=== PATIENT | female | born 1960 | race Caucasian/White ===

== ENCOUNTER → 2016-10-26 | Outpatient (CLI) | payer MEDICARE ==
[2015-05-25 17:30] VITALS: BP 128/82
[~2016-10-26] MED LIST: BIOT25006 PO; CELE200C PO; CITA20TA5 PO; ESOM40CA PO; ESTR1TAB17 PO; ESTR1TAB23 PO; FEXO180T81 PO; GABA-586 PO; HYDR-2766 PO; LEVO150T PO; MAGN250T10 PO; MECL12.52 PO; METO100T2 PO; MIDO5TAB PO; MORP30TA PO; ORPH100T PO; PREG200C PO; PROM12.56 PO; SIMV40TA PO; TEMA15CA PO
--- NOTE | 2016-10-26 10:52 | KCIC ---
MRI left ankle without contrast dated 10/26/2016 9:30 AM Indication: Chronic left ankle pain history of prior Achilles tendon repair evaluate for impingement, injury 5 years ago Comparison: 01/17/2013 Technique: Routine multiplanar multisequence imaging performed. No contrast administered. Findings: Marked thickening and increased signal of the distal Achilles tendon with evidence of prior distal Achilles tendon repair. There is some linear T2 hyperintense signal within the tendon substance centrally. No recurrent full-thickness tear or tendon retraction. Minimal inflammatory stranding in the Achilles peritenon with no signal bursal fluid collection. Mild hypertrophic change of the tibiotalar joint and subtalar joints. There is mild subchondral edema at the distal tibia, talus and calcaneus. Small anterior osteophytes at the tibiotalar joint. Small ankle joint effusion. No loose body. Talar dome is intact. There is mild thinning of the articular cartilage the tibiotalar joint without discrete osteochondral defect. Mild hypertrophic change at the joints of the midfoot. There is an old healed fracture of the distal fibula. Mild degenerative change of the distal tibiofibular joint. Anterior talofibular ligament is ill-defined, unchanged. Posterior talofibular ligament is grossly intact. Calcaneofibular ligament is intact. Tibiofibular ligaments and deltoid complex unremarkable. Plantar fascia is intact. Flexor and extensor tendons are intact. Mild increased signal and thickening of the peroneus longus and peroneus brevis. No fluid along the superior and inferior retinaculum. IMPRESSION: 1. Status post Achilles tendon repair. There is marked increased signal and thickening of the distal Achilles tendon could represent postsurgical change or residual tendinosis. There is also a linear fluid bright defect at the Achilles attachment and may represent a recurrent intrasubstance partial tear or mucoid degeneration. 2. Degenerative change and hypertrophic spurring at the tibiotalar joint, subtalar joints and joints of midfoot. Anterior impingement cannot be excluded. 3. Mild tendinosis of the peroneus longus and peroneus brevis. 4. Old healed fracture of the distal fibula. Electronically signed by: Ham Nicole MD (10/26/2016 10:49 AM) [id number]
--- NOTE | 2016-10-26 17:21 | RAD ---
DATE: 10/26/2016 EXAM: MAMMO KIARA SCREENING BILATERAL HISTORY: Screening mammogram COMPARISON: January 17, 2014 mammogram. The breast parenchyma shows scattered fibroglandular densities. Breast parenchyma level B. FINDINGS: Digital 2-D and 3-D CC and MLO tomosynthesis views of both breasts. There are scattered benign-appearing bilateral calcifications. No suspicious mass, calcification or architectural distortion. No significant change from prior examination. IMPRESSION: No mammographic evidence to suggest malignancy. BI-RADS 2 benign. Recommend routine screening mammogram in 12 months. BI-RADS CATEGORY: 2 BENIGN FINDING(S) RECOMMENDED FOLLOW-UP: 12M 12 MONTH FOLLOW-UP PQRS compliance statement: Patient information was entered into a reminder system with a target due date October 2017 for the next mammogram. Mammography is a sensitive method for finding small breast cancers, but it does not detect them all and is not a substitute for careful clinical examination. A negative mammogram does not negate a clinically suspicious finding and should not result in delay in biopsying a clinically suspicious abnormality. "Our facility is accredited by the [employer] Mammography Program."
== END | disposition home or self-care (01) ==
LOC: KCIC MRI 09:04
PROVIDERS: ATTEND Orthopaedic Surgery
DX: Z12.31 Encounter for screening mammogram for malignant neoplasm of breast (principal); M25.572 Pain in left ankle and joints of left foot
CPT/HCPCS: 73721; 77063; G0202; 77067

== ENCOUNTER 2016-11-19 07:40 | Inpatient (IN) | payer MEDICARE ==
[~2016-11-19] VITALS: Ht 172.7 cm; Wt 83.9 kg
[2016-11-19 08:15] LABS: BASO # 0.1 x10^3/uL (0.0-0.2); BASO % 1 % (0-3); EOS % 0 % (0-3); HEMATOCRIT 44.3 % (36.0-47.0); HEMOGLOBIN 14.6 g/dL (12.0-15.5); LYMPH # 1.2 x10^3/uL (1.0-4.8); LYMPH % 10 % (24-48); MEAN CORPUSCULAR HEMOGLOBIN 33 pg (25-35); MEAN CORPUSCULAR HGB CONC 33 g/dL (31-37); MEAN CORPUSCULAR VOLUME 100 fL (79-100); MONO % 4 % (0-9); NEUT % 85 % (31-73); PLATELET COUNT 244 x10^3/uL (140-400); RED BLOOD COUNT 4.44 x10^6/uL (3.50-5.40); RED CELL DISTRIBUTION WIDTH 12.1 % (11.5-14.5); WHITE BLOOD COUNT 11.7 x10^3/uL (4.0-11.0)
[2016-11-19] MEDS ORDERED: fentaNYL PF VIAL 100 MCG/2 ML VIAL IV PRN (08:15)
[2016-11-19] MEDS ORDERED: FAMOTIDINE 20 MG/2 ML VIAL IVP ONE (08:15)
[2016-11-19 08:18] LABS: BILIRUBIN,URINE SMALL (NEG); GLUCOSE,URINE 100 mg/dL (NEG)
[2016-11-19 08:19] LABS: NITRITE,URINE NEGATIVE (NEG); PROTEIN,URINE 30 mg/dL (NEG-TRACE)
[2016-11-19 08:20] LABS: BACTERIA,URINE 0 /HPF (0-FEW); RBC,URINE 0 /HPF (0-2); SQUAMOUS EPITHELIAL CELL,UR MOD /LPF; WBC,URINE RARE /HPF (0-4)
[2016-11-19 08:25] LABS: CALCIUM 9.8 mg/dL (8.5-10.1); CREATININE 1.2 mg/dL (0.6-1.0); GFR 46.6; POTASSIUM 3.9 mmol/L (3.5-5.1)
[2016-11-19] MEDS ORDERED: IV NORMAL SALINE 1000ML BAG 1,000 ML IV SCH (08:30)
[2016-11-19] MEDS ORDERED: PROMETHAZINE IM 25 MG/ML VIAL IM ONE (08:30)
[2016-11-19 08:31] LABS: ALBUMIN 4.4 g/dL (3.4-5.0); ALBUMIN/GLOBULIN RATIO 1.2 (1.0-1.7); TOTAL BILIRUBIN 0.6 mg/dL (0.2-1.0)
--- NOTE | 2016-11-19 08:35 | PHYS DOC ---
Past Medical History Past Medical History: Depression, Hypertension, Hypothyroid, Other Additional Past Medical Histor: back pain, meniers disease Past Surgical History: Cholecystectomy, , Gastric Bypass, Hysterectomy , Other Additional Past Surgical Histo: HIP ORIF, achilles tendon repair Alcohol Use: Rarely Drug Use: None Adult General Chief Complaint Chief Complaint: NAUSEA/VOMITING/DIARRHA HPI HPI Patient is a 56 year old female who presents with complaint of nausea, vomiting , abdominal pain, and diarrhea. Patient states that her symptoms started 2 days ago and have progressively worsened. Patient states she has had numerous episodes of vomiting and numerous episodes of watery stools. The patient states that she is currently having pain all throughout her abdomen and states that is nonlocalizing. Patient has had history of similar symptoms but states that she has not had any trouble over the last couple years. The patient has history of gastric bypass surgery which was completed in 2006. The patient denies any associated fevers with her symptoms. Patient has been unable to tolerate any oral intake at home and states that she feels very weak and dehydrated. Patient rates pain currently as 9 out of 10. Patient has not taken any medications to help with her symptoms at home. Review of Systems Review of Systems Constitutional: Generalized weakness, denies fever or chills [] Eyes: Denies change in visual acuity, redness, or eye pain [] HENT: Denies nasal congestion or sore throat [] Respiratory: Denies cough or shortness of breath [] Cardiovascular: Denies chest pain or edema [] GI: Abdominal pain, nausea, vomiting, diarrhea [] : Denies dysuria or hematuria [] Musculoskeletal: Denies back pain or joint pain [] Integument: Denies rash or skin lesions [] Neurologic: Denies headache, focal weakness or sensory changes [] Current Medications Current Medications Current Medications Medications (Trade) Dose Ordered Sig/Slade Start Time Stop Time Status Last Admin Dose Admin Famotidine (Pepcid) 20 mg 1X ONCE 11/19/16 08:15 11/19/16 08:16 DC 11/19/16 08:28 20 MG Fentanyl Citrate (Fentanyl 2ml Vial) 50 mcg PRN Q15MIN PRN 11/19/16 08:15 11/20/16 08:14 11/19/16 08:28 50 MCG Info (Do NOT chart on this entry -- for MONITORING) 1 each PRN DAILY PRN 11/19/16 09:45 11/21/16 09:44 Iohexol (Omnipaque 300 Mg/ml) 60 ml 1X ONCE 11/19/16 09:45 11/19/16 09:46 DC 11/19/16 09:57 60 ML Promethazine HCl (Phenergan Im) 25 mg 1X ONCE 11/19/16 08:30 11/19/16 08:31 DC 11/19/16 08:29 25 MG Sodium Chloride 1,000 ml @ 1,000 mls/hr Q1H 11/19/16 08:30 11/19/16 09:29 DC 11/19/16 08:26 1,000 MLS/HR Allergies Allergies Allergies Coded Allergies Type Severity Reaction Last Updated Verified No Known Drug Allergies 11/19/16 No Physical Exam Physical Exam Constitutional: Alert, afebrile, appears ill. [] HENT: Normocephalic, atraumatic, bilateral external ears normal, oropharynx dry , no oral exudates, nose normal. [] Eyes: PERRLA, EOMI, conjunctiva normal, no discharge. [] Neck: Normal range of motion, no tenderness, supple, no stridor. [] Cardiovascular:Heart rate regular rhythm, no murmur [] Lungs & Thorax: Bilateral breath sounds clear to auscultation [] Abdomen: Bowel sounds normal, soft, diffusely tender in all 4 quadrants, no masses, no pulsatile masses. [] Skin: Warm, dry, no erythema, no rash. [] Back: No tenderness, no CVA tenderness. [] Extremities: No tenderness, no cyanosis, no clubbing, ROM intact, no edema. [] Neurologic: Alert and oriented X 3, normal motor function, normal sensory function, no focal deficits noted. [] Current Patient Data Vital Signs Vital Signs Date Time Temp Pulse Resp B/P (MAP) Pulse Ox O2 Delivery O2 Flow Rate FiO2 11/19/16 07:54 99.5 67 18 179/78 (111) 100 Room Air 99.5 Lab Values Laboratory Tests Test 11/19/16 07:45 11/19/16 08:00 Urine Collection Type Unknown Urine Color Yellow Urine Clarity Clear Urine pH 6.0 Urine Specific [place] >=1.030 Urine Protein 30 mg/dL (NEG-TRACE) Urine Glucose (UA) 100 mg/dL (NEG) Urine Ketones (Stick) >160 mg/dL (NEG) Urine Blood Negative (NEG) Urine Nitrite Negative (NEG) Urine Bilirubin Small (NEG) Urine Urobilinogen Dipstick 2.0 mg/dL (0.2 mg/dL) Urine Leukocyte Esterase Negative (NEG) Urine RBC 0 /HPF (0-2) Urine WBC Rare /HPF (0-4) Urine Squamous Epithelial Cells Mod /LPF Urine Bacteria 0 /HPF (0-FEW) Urine Mucus Mod /LPF White Blood Count 11.7 x10^3/uL (4.0-11.0) H Red Blood Count 4.44 x10^6/uL (3.50-5.40) Hemoglobin 14.6 g/dL (12.0-15.5) Hematocrit 44.3 % (36.0-47.0) Mean Corpuscular Volume 100 fL (79-100) Mean Corpuscular Hemoglobin 33 pg (25-35) Mean Corpuscular Hemoglobin Concent 33 g/dL (31-37) Red Cell Distribution Width 12.1 % (11.5-14.5) Platelet Count 244 x10^3/uL (140-400) Neutrophils (%) (Auto) 85 % (31-73) H Lymphocytes (%) (Auto) 10 % (24-48) L Monocytes (%) (Auto) 4 % (0-9) Eosinophils (%) (Auto) 0 % (0-3) Basophils (%) (Auto) 1 % (0-3) Neutrophils # (Auto) 10.0 x10^3uL (1.8-7.7) H Lymphocytes # (Auto) 1.2 x10^3/uL (1.0-4.8) Monocytes # (Auto) 0.4 x10^3/uL (0.0-1.1) Eosinophils # (Auto) 0.0 x10^3/uL (0.0-0.7) Basophils # (Auto) 0.1 x10^3/uL (0.0-0.2) Segmented Neutrophils % 93 % (35-66) H Lymphocytes % 5 % (24-48) L Monocytes % 2 % (0-10) Platelet Estimate Adequate (ADEQUATE) Sodium Level 142 mmol/L (136-145) Potassium Level 3.9 mmol/L (3.5-5.1) Chloride Level 100 mmol/L (98-107) Carbon Dioxide Level 28 mmol/L (21-32) Anion Gap 14 (6-14) Blood Urea Nitrogen 13 mg/dL (7-20) Creatinine 1.2 mg/dL (0.6-1.0) H Estimated GFR (Cockcroft-Gault) 46.6 BUN/Creatinine Ratio 11 (6-20) Glucose Level 150 mg/dL (70-99) H Calcium Level 9.8 mg/dL (8.5-10.1) Total Bilirubin 0.6 mg/dL (0.2-1.0) Aspartate Amino Transferase (AST) 28 U/L (15-37) Alanine Aminotransferase (ALT) 26 U/L (14-59) Alkaline Phosphatase 84 U/L (46-116) Total Protein 8.0 g/dL (6.4-8.2) Albumin 4.4 g/dL (3.4-5.0) Albumin/Globulin Ratio 1.2 (1.0-1.7) Lipase 97 U/L (73-393) Laboratory Tests 11/19/16 08:00 Laboratory Tests 11/19/16 08:00 EKG EKG Not performed [] Radiology/Procedures Radiology/Procedures [facility] [address] [place] [address] IMAGING REPORT Signed PATIENT: ROGER MCCALL ACCOUNT: [id number] : 1960 LOCATION: ER AGE: 56 SEX: F EXAM STATUS: REG ER ORD. PHYSICIAN: LAY ODELL APRN REASON: abdominal pain with nausea and vomiting PROCEDURE: ACUTE ABDOMEN SERIES Acute abdomen series with chest, 3 views, 11/19/2016: History: Nausea and vomiting There is mild gaseous distention of several small bowel loops in the upper abdomen. There is a small amount of gas and stool in the colon. There are scattered air-fluid levels. The findings suggest small bowel obstruction versus ileus. No free air seen in the abdomen. There is no evidence of organomegaly. Lower pelvic calcifications are compatible with phleboliths. Surgical pins are present at the left hip. There are moderate scattered spurs in the spine. The heart size is normal. The lungs are clear. There is no evidence of pleural fluid. IMPRESSION: Mildly dilated small bowel loops with associated air-fluid levels raising the possibility of small bowel obstruction. DICTATED and SIGNED BY: KELLY LAZARO MD DATE: 11/19/16832 CC: BLU ANDRADE MD; LAY ODELL APRN; EARNESTINE BARBOUR DO ~ [facility] [address] [place] [address] IMAGING REPORT Signed PATIENT: ROGER MCCALL ACCOUNT: [id number] : 1960 LOCATION: ER AGE: 56 SEX: F EXAM STATUS: REG ER ORD. PHYSICIAN: BLU ANDRADE MD REASON: abdominal pain, possible small bowel obstruction PROCEDURE: CT ABD PELV W/ IV CONTRST ONLY CT of the abdomen and pelvis with contrast, 11/19/2016: History: Abdominal pain, nausea and vomiting Multidetector CT imaging was performed following an IV bolus injection of iodinated contrast material. No oral contrast material was administered for this exam. The gallbladder surgically absent. No hepatic mass is seen. Mild prominence of the central intrahepatic bile ducts is compatible with the postcholecystectomy state. The pancreas is unremarkable. No splenic abnormality is seen. The kidneys show no evidence of obstruction or mass. There is mild aortic calcific plaquing without evidence of aneurysm. The uterus is surgically absent. There are surgical sutures related to the stomach. There is mild distention of the majority of the small bowel loops with fluid and gas with scattered air-fluid levels. There is a transition zone at the level of the terminal ileum as best seen on coronal images 24 through 26 of series #4. There is only small amount of stool and gas in the colon. The etiology of the obstruction is not clear. Several small mesenteric lymph nodes are noted in the right lower quadrant. No free air or significant free fluid is evident in the abdomen or pelvis. Surgical pins are present in the left hip. There are mild scattered degenerative changes in the spine. IMPRESSION: Distal small bowel obstruction at the level of the terminal ileum. PQRS Compliance Statement: One or more of the following individualized dose reduction techniques were utilized for this examination: 1. Automated exposure control 2. Adjustment of the mA and/or kV according to patient size 3. Use of iterative reconstruction technique DICTATED and SIGNED BY: KELLY LAZARO MD DATE: 11/19/16 1024 CC: BLU ANDRADE MD; EARNESTINE BARBOUR DO ~ [] Course & Med Decision Making Course & Med Decision Making Pertinent Labs and Imaging studies reviewed. (See chart for details) The patient was given IM Phenergan and IV fentanyl and fluids. Patient's symptoms slightly improved, however patient unable to tolerate any by mouth intake. The patient was found to have evidence of small bowel obstruction. I spoke with Dr. Cardona of general surgery. She recommended insertion of an NG tube to help decompress the patient's stomach and stated she would remain on consult with the patient's care in hospital. The patient was admitted to Dr. Hebert. Dragon Disclaimer Dragchantal Disclaimer This electronic medical record was generated, in whole or in part, using a voice recognition dictation system. Departure Departure Impression: Primary Impression: Small bowel obstruction Disposition: ADMITTED INPATIENT Admitting Physician: Debra Hebert Condition: STABLE Referrals: DONNIE ZAPIEN (PCP) BLU ANDRADE MD Nov 19, 2016 08:35
--- NOTE | 2016-11-19 08:39 | RAD ---
Acute abdomen series with chest, 3 views, 11/19/2016: History: Nausea and vomiting There is mild gaseous distention of several small bowel loops in the upper abdomen. There is a small amount of gas and stool in the colon. There are scattered air-fluid levels. The findings suggest small bowel obstruction versus ileus. No free air seen in the abdomen. There is no evidence of organomegaly. Lower pelvic calcifications are compatible with phleboliths. Surgical pins are present at the left hip. There are moderate scattered spurs in the spine. The heart size is normal. The lungs are clear. There is no evidence of pleural fluid. IMPRESSION: Mildly dilated small bowel loops with associated air-fluid levels raising the possibility of small bowel obstruction.
[2016-11-19] MEDS ORDERED: IOHEXOL 300 MG/ML 75 ML VIAL IV ONE (09:45)
[2016-11-19] MEDS ORDERED: CONTRAST GIVEN MC PRN (09:45)
[2016-11-19 10:38] LABS: PLT ESTIMATE ADEQUATE (ADEQUATE)
--- NOTE | 2016-11-19 10:41 | RAD ---
CT of the abdomen and pelvis with contrast, 11/19/2016: History: Abdominal pain, nausea and vomiting Multidetector CT imaging was performed following an IV bolus injection of iodinated contrast material. No oral contrast material was administered for this exam. The gallbladder surgically absent. No hepatic mass is seen. Mild prominence of the central intrahepatic bile ducts is compatible with the postcholecystectomy state. The pancreas is unremarkable. No splenic abnormality is seen. The kidneys show no evidence of obstruction or mass. There is mild aortic calcific plaquing without evidence of aneurysm. The uterus is surgically absent. There are surgical sutures related to the stomach. There is mild distention of the majority of the small bowel loops with fluid and gas with scattered air-fluid levels. There is a transition zone at the level of the terminal ileum as best seen on coronal images 24 through 26 of series #4. There is only small amount of stool and gas in the colon. The etiology of the obstruction is not clear. Several small mesenteric lymph nodes are noted in the right lower quadrant. No free air or significant free fluid is evident in the abdomen or pelvis. Surgical pins are present in the left hip. There are mild scattered degenerative changes in the spine. IMPRESSION: Distal small bowel obstruction at the level of the terminal ileum. PQRS Compliance Statement: One or more of the following individualized dose reduction techniques were utilized for this examination: 1. Automated exposure control 2. Adjustment of the mA and/or kV according to patient size 3. Use of iterative reconstruction technique
[2016-11-19] MEDS ORDERED: ACETAMINOPHEN 325 MG TABLET. PO PRN (11:15)
[2016-11-19] MEDS ORDERED: ONDANSETRON PF 4 MG/2 ML VIAL. IV PRN (11:15)
[2016-11-19] MEDS ORDERED: IV DEXTROSE 5 %-0.45 % NACL 1,000 ML IV ONE (11:30)
[2016-11-19] MEDS: fentaNYL PF VIAL 100 MCG/2 ML VIAL IV PRN ×3 (11:34→20:19)
--- NOTE | 2016-11-19 11:35 | PDOC1 ---
History and Physical Date of Admission Date of Admission DATE: 11/19/16 TIME: 11:29 Identification/Chief Complaint Chief Complaint abd pain ,diarrhea, nausea x 2 days Problems: Source Source: Caregiver, Chart review, Patient History of Present Illness History of Present Illness 56y.o female, hx gastric bypass [facility] 2006,. not following up anymore with them, but since then has been having (not too freq) Abd issues, abd pain, obstrucn, never had NGT before, LAst seen here in 2013 for similar sxs, she goes to [facility] at times for admission, 2 day hx abd pain all over, emesis, diarrhea > 5x a day but no fever, dry heaving, Seen atER, bucket at bedside, scared of the nGT, CT shows distal obstrxn at level of terminal ileum, LAbs cerat 1.2, GFR high 40s, WBC 11, afebrile Admitted under hospitalist with GS aware of consult, She claims she weight 400lbs prior to gastric bypass -now weighs 185 lbs Past Medical History Pulmonary: Other GI: GERD Musculoskeletal: low back pain Past Surgical History Past Surgical History: Other (gastric bypass) Family History Family History: Hypertension Social History Smoke: No ALCOHOL: none Drugs: None Current Problem List Problem List Problems Medical Problems: (1) Small bowel obstruction Status: Acute Problems: Current Medications Current Medications Current Medications Sodium Chloride 1,000 ml @ 1,000 mls/hr Q1H IV Last administered on 11/19/16 08:26; Start 11/19/16 at 08:30; Stop 11/19/16 at 09:29; Status DC Famotidine (Pepcid) 20 mg 1X ONCE IVP Last administered on 11/19/16 08:28; Start 11/19/16 at 08:15; Stop 11/19/16 at 08:16; Status DC Promethazine HCl (Phenergan Im) 25 mg 1X ONCE IM Last administered on 08:29; Start 11/19/16 at 08:30; Stop 11/19/16 at 08:31; Status DC Fentanyl Citrate (Fentanyl 2ml Vial) 50 mcg PRN Q15MIN PRN IV PAIN GREATER THAN 3/10 Last administered on 11/19/16 08:28; Start 11/19/16 at 08:15; Stop at 11:16; Status DC Iohexol (Omnipaque 300 Mg/ml) 60 ml 1X ONCE IV Last administered on 11/19/16t 09:57; Start 11/19/16 at 09:45; Stop 11/19/16 at 09:46; Status DC Info (Do NOT chart on this entry -- for MONITORING) 1 each PRN DAILY PRN MC SEE COMMENTS; Start 11/19/16 at 09:45; Stop 11/21/16 at 09:44 Ondansetron HCl (Zofran) 4 mg PRN Q8HRS PRN IV NAUSEA/VOMITING; Start 11/19/16 at 11:15; Stop 11/20/16 at 11:14 Fentanyl Citrate (Fentanyl 2ml Vial) 50 mcg PRN Q2HR PRN IV PAIN; Start at 11:15; Stop 11/20/16 at 11:14 Acetaminophen (Tylenol) 650 mg PRN Q4HRS PRN PO FEVER; Start 11/19/16 at 11:15 ; Stop 11/20/16 at 11:14 Dextrose/Sodium Chloride 1,000 ml @ 125 mls/hr 1X ONCE IV ; Start 11/19/16 at 11:30; Stop 11/19/16 at 19:29 Active Scripts Active Reported Biotin 2,500 Mcg Capsule 10,000 Mcg PO DAILY Magnesium (Magnesium Oxide) 250 Mg Tablet 250 Mg PO DAILY Mariah Allergy (Fexofenadine Hcl) 180 Mg Tablet 1 Tab PO DAILY Gabapentin 300 Mg Capsule 1 Cap PO TID Temazepam 15 Mg Capsule 1-2 Cap PO QHS Promethazine Hcl 12.5 Mg Tablet 1 Tab PO Q6HRS Covaryx H.s. Tablet (Estrogen,Tigist/Me-Testosterone) 1 Each Tablet 1 Each PO Nexium Capsule (Esomeprazole Magnesium) 40 Mg Capsule.dr 40 Mg PO DAILY Hydrocodone-Apap 10-325 (Hydrocodone Bit/Acetaminophen) 1 Each Tablet 1 Each PO PRN Q4HRS Zocor (Simvastatin) 40 Mg Tablet 40 Mg PO DAILY Celebrex (Celecoxib) 200 Mg Capsule 60 Mg PO DAILY Synthroid (Levothyroxine Sodium) 150 Mcg Tablet 100 Mcg PO DAILY Allergies Allergies: Coded Allergies: No Known Drug Allergies (Unverified , 11/19/16) ROS Review of System abd pain, emesis, diarrhea, dry heaving Physical Exam General: Alert, Oriented X3, Cooperative, No acute distress HEENT: PERRLA, EOMI, Mucous membr. moist/pink Lungs: Clear to auscultation, Normal air movement Heart: S1S2, RRR, no thrills, no gallops, no murmurs Cardiovascular: S1, S2 Breasts: Normal, Rt breast nml w/o mass, Lt breast nml w/o mass, Nipples normal Abdomen: Soft, Other (hypoactive bS< non distended, no guarding) Rectal Exam: not examined PELVIC: Nml ext genitalia Extremities: No clubbing, No cyanosis, No edema, Normal pulses, No tenderness/ swelling Skin: No rashes, No breakdown, No significant lesion Neuro: Normal gait, Normal speech, Strength at 5/5 X4 ext, Normal tone, Sensation intact, Cranial nerves 3-12 NL, Reflexes 2+ Psych/Mental Status: Mental status NL, Mood NL Vitals Vitals Vital Signs Date Time Temp Pulse Resp B/P (MAP) Pulse Ox O2 Delivery O2 Flow Rate FiO2 11/19/16 10:29 62 20 130/60 (83) 100 Room Air 11/19/16 07:54 99.5 99.5 Labs Labs Laboratory Tests Test 11/19/16 07:45 11/19/16 08:00 Urine Collection Type Unknown Urine Color Yellow Urine Clarity Clear Urine pH 6.0 Urine Specific [place] >=1.030 Urine Protein 30 mg/dL (NEG-TRACE) Urine Glucose (UA) 100 mg/dL (NEG) Urine Ketones (Stick) >160 mg/dL (NEG) Urine Blood Negative (NEG) Urine Nitrite Negative (NEG) Urine Bilirubin Small (NEG) Urine Urobilinogen Dipstick 2.0 mg/dL (0.2 mg/dL) Urine Leukocyte Esterase Negative (NEG) Urine RBC 0 /HPF (0-2) Urine WBC Rare /HPF (0-4) Urine Squamous Epithelial Cells Mod /LPF Urine Bacteria 0 /HPF (0-FEW) Urine Mucus Mod /LPF White Blood Count 11.7 x10^3/uL (4.0-11.0) Red Blood Count 4.44 x10^6/uL (3.50-5.40) Hemoglobin 14.6 g/dL (12.0-15.5) Hematocrit 44.3 % (36.0-47.0) Mean Corpuscular Volume 100 fL (79-100) Mean Corpuscular Hemoglobin 33 pg (25-35) Mean Corpuscular Hemoglobin Concent 33 g/dL (31-37) Red Cell Distribution Width 12.1 % (11.5-14.5) Platelet Count 244 x10^3/uL (140-400) Neutrophils (%) (Auto) 85 % (31-73) Lymphocytes (%) (Auto) 10 % (24-48) Monocytes (%) (Auto) 4 % (0-9) Eosinophils (%) (Auto) 0 % (0-3) Basophils (%) (Auto) 1 % (0-3) Neutrophils # (Auto) 10.0 x10^3uL (1.8-7.7) Lymphocytes # (Auto) 1.2 x10^3/uL (1.0-4.8) Monocytes # (Auto) 0.4 x10^3/uL (0.0-1.1) Eosinophils # (Auto) 0.0 x10^3/uL (0.0-0.7) Basophils # (Auto) 0.1 x10^3/uL (0.0-0.2) Segmented Neutrophils % 93 % (35-66) Lymphocytes % 5 % (24-48) Monocytes % 2 % (0-10) Platelet Estimate Adequate (ADEQUATE) Sodium Level 142 mmol/L (136-145) Potassium Level 3.9 mmol/L (3.5-5.1) Chloride Level 100 mmol/L (98-107) Carbon Dioxide Level 28 mmol/L (21-32) Anion Gap 14 (6-14) Blood Urea Nitrogen 13 mg/dL (7-20) Creatinine 1.2 mg/dL (0.6-1.0) Estimated GFR (Cockcroft-Gault) 46.6 BUN/Creatinine Ratio 11 (6-20) Glucose Level 150 mg/dL (70-99) Calcium Level 9.8 mg/dL (8.5-10.1) Total Bilirubin 0.6 mg/dL (0.2-1.0) Aspartate Amino Transf (AST/SGOT) 28 U/L (15-37) Alanine Aminotransferase (ALT/SGPT) 26 U/L (14-59) Alkaline Phosphatase 84 U/L (46-116) Total Protein 8.0 g/dL (6.4-8.2) Albumin 4.4 g/dL (3.4-5.0) Albumin/Globulin Ratio 1.2 (1.0-1.7) Lipase 97 U/L (73-393) Laboratory Tests Test 11/19/16 07:45 11/19/16 08:00 Urine Collection Type Unknown Urine Color Yellow Urine Clarity Clear Urine pH 6.0 Urine Specific [place] >=1.030 Urine Protein 30 mg/dL (NEG-TRACE) Urine Glucose (UA) 100 mg/dL (NEG) Urine Ketones (Stick) >160 mg/dL (NEG) Urine Blood Negative (NEG) Urine Nitrite Negative (NEG) Urine Bilirubin Small (NEG) Urine Urobilinogen Dipstick 2.0 mg/dL (0.2 mg/dL) Urine Leukocyte Esterase Negative (NEG) Urine RBC 0 /HPF (0-2) Urine WBC Rare /HPF (0-4) Urine Squamous Epithelial Cells Mod /LPF Urine Bacteria 0 /HPF (0-FEW) Urine Mucus Mod /LPF White Blood Count 11.7 x10^3/uL (4.0-11.0) Red Blood Count 4.44 x10^6/uL (3.50-5.40) Hemoglobin 14.6 g/dL (12.0-15.5) Hematocrit 44.3 % (36.0-47.0) Mean Corpuscular Volume 100 fL (79-100) Mean Corpuscular Hemoglobin 33 pg (25-35) Mean Corpuscular Hemoglobin Concent 33 g/dL (31-37) Red Cell Distribution Width 12.1 % (11.5-14.5) Platelet Count 244 x10^3/uL (140-400) Neutrophils (%) (Auto) 85 % (31-73) Lymphocytes (%) (Auto) 10 % (24-48) Monocytes (%) (Auto) 4 % (0-9) Eosinophils (%) (Auto) 0 % (0-3) Basophils (%) (Auto) 1 % (0-3) Neutrophils # (Auto) 10.0 x10^3uL (1.8-7.7) Lymphocytes # (Auto) 1.2 x10^3/uL (1.0-4.8) Monocytes # (Auto) 0.4 x10^3/uL (0.0-1.1) Eosinophils # (Auto) 0.0 x10^3/uL (0.0-0.7) Basophils # (Auto) 0.1 x10^3/uL (0.0-0.2) Segmented Neutrophils % 93 % (35-66) Lymphocytes % 5 % (24-48) Monocytes % 2 % (0-10) Platelet Estimate Adequate (ADEQUATE) Sodium Level 142 mmol/L (136-145) Potassium Level 3.9 mmol/L (3.5-5.1) Chloride Level 100 mmol/L (98-107) Carbon Dioxide Level 28 mmol/L (21-32) Anion Gap 14 (6-14) Blood Urea Nitrogen 13 mg/dL (7-20) Creatinine 1.2 mg/dL (0.6-1.0) Estimated GFR (Cockcroft-Gault) 46.6 BUN/Creatinine Ratio 11 (6-20) Glucose Level 150 mg/dL (70-99) Calcium Level 9.8 mg/dL (8.5-10.1) Total Bilirubin 0.6 mg/dL (0.2-1.0) Aspartate Amino Transf (AST/SGOT) 28 U/L (15-37) Alanine Aminotransferase (ALT/SGPT) 26 U/L (14-59) Alkaline Phosphatase 84 U/L (46-116) Total Protein 8.0 g/dL (6.4-8.2) Albumin 4.4 g/dL (3.4-5.0) Albumin/Globulin Ratio 1.2 (1.0-1.7) Lipase 97 U/L (73-393) VTE Prophylaxis Ordered VTE Prophylaxis Devices: Yes VTE Pharmacological Prophylaxi: Yes Assessment/Plan Assessment/Plan 1. Distal SBO at level of terminal ileum 2. SIRS POA, no sepsis 3. Hx gastric bypass completed in 2006 4. CHIRAG vasomotor probably unknown if existing CKD 5. Diarrhea, emesis 6. GERD, chronic back pain - stable PLAN: admit NGT advsied by GS NPO IVF PAin meds ANti nausea meds MOntior leukocytosis WOF hypokalemia BMP sarkis - monitor CHIRAG Stool studies Awaiting home meds Seen at ER Dw Dr. Leigh and ASSOCIATE PROJECT MANAGER TOÑA QUINN MD Nov 19, 2016 11:35
[2016-11-19] MEDS ORDERED: LIDOCAINE 2% JELLY 6ML IN APPLICATOR. ONE (11:38)
[2016-11-19] MEDS ORDERED: diphenhydrAMINE 50 MG/ML VIAL IVP PRN (11:45)
[2016-11-19 13:15] VITALS: BP 133/66
--- NOTE | 2016-11-19 14:04 | PDOC2 ---
JAVI CURTIS CORPORATE COUNSELOR 11/19/16 1404: CONSULT Date of Consult Date of Consult DATE: 11/19/16 TIME: 13:59 Reason for Consult Reason for Consult: sbo Referring Physician Referring Physician: ER Identification/Chief Complaint Chief Complaint abdominal pain Problems: Source Source: Chart review, Patient History of Present Illness Reason for Visit: Reports 2 day history of diffuse abdominal pain. Yesterday began having profuse vomiting. Reports 4 stools today(not diarrhea), then developed jelly like stools after. No flatus today. No previous hx of bowel obstruction. Denies any recent sick contacts or concerning meals. + subjective fevers and chills Past Medical History Cardiovascular: Hyperlipidemia Pulmonary: Other GI: GERD Psych: Depression Musculoskeletal: low back pain Endocrine: Hypothyroidism Past Surgical History Past Surgical History: Cholecystectomy, , Other (gastric bypass) Family History Family History: Hypertension Social History No ALCOHOL: none Drugs: None Lives: with Family Current Problem List Problem List Problems Medical Problems: (1) Small bowel obstruction Status: Acute Current Medications Current Medications Current Medications Sodium Chloride 1,000 ml @ 1,000 mls/hr Q1H IV Last administered on 11/19/16 08:26; Start 11/19/16 at 08:30; Stop 11/19/16 at 09:29; Status DC Famotidine (Pepcid) 20 mg 1X ONCE IVP Last administered on 11/19/16 08:28; Start 11/19/16 at 08:15; Stop 11/19/16 at 08:16; Status DC Promethazine HCl (Phenergan Im) 25 mg 1X ONCE IM Last administered on 08:29; Start 11/19/16 at 08:30; Stop 11/19/16 at 08:31; Status DC Fentanyl Citrate (Fentanyl 2ml Vial) 50 mcg PRN Q15MIN PRN IV PAIN GREATER THAN 3/10 Last administered on 11/19/16 08:28; Start 11/19/16 at 08:15; Stop at 11:16; Status DC Iohexol (Omnipaque 300 Mg/ml) 60 ml 1X ONCE IV Last administered on 11/19/16 09:57; Start 11/19/16 at 09:45; Stop 11/19/16 at 09:46; Status DC Info (Do NOT chart on this entry -- for MONITORING) 1 each PRN DAILY PRN MC SEE COMMENTS; Start 11/19/16 at 09:45; Stop 11/21/16 at 09:44 Ondansetron HCl (Zofran) 4 mg PRN Q8HRS PRN IV NAUSEA/VOMITING Last administered on 11/19/16 11:33; Start 11/19/16 at 11:15; Stop 11/19/16 at 11:37 ; Status DC Fentanyl Citrate (Fentanyl 2ml Vial) 50 mcg PRN Q2HR PRN IV PAIN Last administered on 11/19/16 11:34; Start 11/19/16 at 11:15; Stop 11/20/16 at 11:14 Acetaminophen (Tylenol) 650 mg PRN Q4HRS PRN PO FEVER; Start 11/19/16 at 11:15 ; Stop 11/20/16 at 11:14 Dextrose/Sodium Chloride 1,000 ml @ 125 mls/hr 1X ONCE IV Last administered on 11/19/16 12:57; Start 11/19/16 at 11:30; Stop 11/19/16 at 19:29 Ondansetron HCl (Zofran) 4 mg PRN Q6HRS PRN IV NAUSEA/VOMITING; Start 11/19/16 at 11:36; Stop 11/20/16 at 11:35 Prochlorperazine Edisylate (Compazine) 10 mg PRN Q6HRS PRN IV NAUSEA/VOMITING; Start 11/19/16 at 11:45 Famotidine (Pepcid) 20 mg BID IVP ; Start 11/19/16 at 21:00 Potassium Chloride 30 meq/ Sodium Chloride 1,015 ml @ 75 mls/hr [id number] IV ; Start 11/19/16 at 12:00 Levothyroxine Sodium 50 mcg/ Sodium Chloride 5 ml @ 100 mls/hr DAILY IVP ; Start 11/19/16 at 13:00 Diphenhydramine HCl (Benadryl) 25 mg PRN QHS PRN IVP sleep; Start 11/19/16 at 11:45 Lidocaine HCl (Glydo (Lidocaine) Jelly) 6 maria antonia STK-MED ONCE .ROUTE ; Start at 11:38; Stop 11/19/16 at 11:39; Status DC Active Scripts Active Reported Biotin 2,500 Mcg Capsule 10,000 Mcg PO DAILY Magnesium (Magnesium Oxide) 250 Mg Tablet 250 Mg PO DAILY Mariah Allergy (Fexofenadine Hcl) 180 Mg Tablet 1 Tab PO DAILY Gabapentin 300 Mg Capsule 1 Cap PO TID Temazepam 15 Mg Capsule 1-2 Cap PO QHS Promethazine Hcl 12.5 Mg Tablet 1 Tab PO Q6HRS Covaryx H.s. Tablet (Estrogen,Tigist/Me-Testosterone) 1 Each Tablet 1 Each PO Nexium Capsule (Esomeprazole Magnesium) 40 Mg Capsule.dr 40 Mg PO DAILY Hydrocodone-Apap 10-325 (Hydrocodone Bit/Acetaminophen) 1 Each Tablet 1 Each PO PRN Q4HRS Zocor (Simvastatin) 40 Mg Tablet 40 Mg PO DAILY Celebrex (Celecoxib) 200 Mg Capsule 60 Mg PO DAILY Synthroid (Levothyroxine Sodium) 150 Mcg Tablet 100 Mcg PO DAILY Allergies Allergies: Coded Allergies: No Known Drug Allergies (Unverified , 11/19/16) ROS General: YES: Chills, Fatigue PSYCHOLOGICAL ROS: No: Anxiety, Depression Eyes: No Blurry vision, No Double vision HEENT: No: Heacaches, Sore Throat Hematological and Lymphatic: No: Bleeding Problems, Blood Clots Respiratory: No: Cough, Shortness of breath Cardiovascular: No Chest Pain, No Palpitations Gastrointestinal: Yes Other (see hpi) Genitourinary: No Dysuria, No Hematuria Musculoskeletal: Yes Joint Pain, Yes Muscle Pain Neurological: Yes Numbness/Tingling, No Impaired Coord/balance Skin: No Pruritus, No Rash Physical Exam General: Alert, Oriented X3, Cooperative, No acute distress HEENT: PERRLA, Mucous membr. moist/pink, Other (NG in place) Lungs: Clear to auscultation, Normal air movement Heart: Regular rate, Normal S1, Normal S2, No murmurs Abdomen: Soft, Other (tenderness to abdomen diffusely-- mild, no guarding or rebound ) Extremities: No clubbing, No cyanosis Skin: No rashes, No breakdown Neuro: Normal gait, Normal speech Psych/Mental Status: Mental status NL, Mood NL MUSCULOSKELETAL: No deformity, No swelling Vitals VITALS Vital Signs Date Time Temp Pulse Resp B/P (MAP) Pulse Ox O2 Delivery O2 Flow Rate FiO2 11/19/16 12:00 78 22 144/74 (97) 96 Room Air 11/19/16 07:54 99.5 99.5 Labs Labs Laboratory Tests Test 11/19/16 07:45 11/19/16 08:00 Urine Collection Type Unknown Urine Color Yellow Urine Clarity Clear Urine pH 6.0 Urine Specific [place] >=1.030 Urine Protein 30 mg/dL (NEG-TRACE) Urine Glucose (UA) 100 mg/dL (NEG) Urine Ketones (Stick) >160 mg/dL (NEG) Urine Blood Negative (NEG) Urine Nitrite Negative (NEG) Urine Bilirubin Small (NEG) Urine Urobilinogen Dipstick 2.0 mg/dL (0.2 mg/dL) Urine Leukocyte Esterase Negative (NEG) Urine RBC 0 /HPF (0-2) Urine WBC Rare /HPF (0-4) Urine Squamous Epithelial Cells Mod /LPF Urine Bacteria 0 /HPF (0-FEW) Urine Mucus Mod /LPF White Blood Count 11.7 x10^3/uL (4.0-11.0) Red Blood Count 4.44 x10^6/uL (3.50-5.40) Hemoglobin 14.6 g/dL (12.0-15.5) Hematocrit 44.3 % (36.0-47.0) Mean Corpuscular Volume 100 fL (79-100) Mean Corpuscular Hemoglobin 33 pg (25-35) Mean Corpuscular Hemoglobin Concent 33 g/dL (31-37) Red Cell Distribution Width 12.1 % (11.5-14.5) Platelet Count 244 x10^3/uL (140-400) Neutrophils (%) (Auto) 85 % (31-73) Lymphocytes (%) (Auto) 10 % (24-48) Monocytes (%) (Auto) 4 % (0-9) Eosinophils (%) (Auto) 0 % (0-3) Basophils (%) (Auto) 1 % (0-3) Neutrophils # (Auto) 10.0 x10^3uL (1.8-7.7) Lymphocytes # (Auto) 1.2 x10^3/uL (1.0-4.8) Monocytes # (Auto) 0.4 x10^3/uL (0.0-1.1) Eosinophils # (Auto) 0.0 x10^3/uL (0.0-0.7) Basophils # (Auto) 0.1 x10^3/uL (0.0-0.2) Segmented Neutrophils % 93 % (35-66) Lymphocytes % 5 % (24-48) Monocytes % 2 % (0-10) Platelet Estimate Adequate (ADEQUATE) Sodium Level 142 mmol/L (136-145) Potassium Level 3.9 mmol/L (3.5-5.1) Chloride Level 100 mmol/L (98-107) Carbon Dioxide Level 28 mmol/L (21-32) Anion Gap 14 (6-14) Blood Urea Nitrogen 13 mg/dL (7-20) Creatinine 1.2 mg/dL (0.6-1.0) Estimated GFR (Cockcroft-Gault) 46.6 BUN/Creatinine Ratio 11 (6-20) Glucose Level 150 mg/dL (70-99) Calcium Level 9.8 mg/dL (8.5-10.1) Total Bilirubin 0.6 mg/dL (0.2-1.0) Aspartate Amino Transf (AST/SGOT) 28 U/L (15-37) Alanine Aminotransferase (ALT/SGPT) 26 U/L (14-59) Alkaline Phosphatase 84 U/L (46-116) Total Protein 8.0 g/dL (6.4-8.2) Albumin 4.4 g/dL (3.4-5.0) Albumin/Globulin Ratio 1.2 (1.0-1.7) Lipase 97 U/L (73-393) Laboratory Tests Test 11/19/16 07:45 11/19/16 08:00 Urine Collection Type Unknown Urine Color Yellow Urine Clarity Clear Urine pH 6.0 Urine Specific [place] >=1.030 Urine Protein 30 mg/dL (NEG-TRACE) Urine Glucose (UA) 100 mg/dL (NEG) Urine Ketones (Stick) >160 mg/dL (NEG) Urine Blood Negative (NEG) Urine Nitrite Negative (NEG) Urine Bilirubin Small (NEG) Urine Urobilinogen Dipstick 2.0 mg/dL (0.2 mg/dL) Urine Leukocyte Esterase Negative (NEG) Urine RBC 0 /HPF (0-2) Urine WBC Rare /HPF (0-4) Urine Squamous Epithelial Cells Mod /LPF Urine Bacteria 0 /HPF (0-FEW) Urine Mucus Mod /LPF White Blood Count 11.7 x10^3/uL (4.0-11.0) Red Blood Count 4.44 x10^6/uL (3.50-5.40) Hemoglobin 14.6 g/dL (12.0-15.5) Hematocrit 44.3 % (36.0-47.0) Mean Corpuscular Volume 100 fL (79-100) Mean Corpuscular Hemoglobin 33 pg (25-35) Mean Corpuscular Hemoglobin Concent 33 g/dL (31-37) Red Cell Distribution Width 12.1 % (11.5-14.5) Platelet Count 244 x10^3/uL (140-400) Neutrophils (%) (Auto) 85 % (31-73) Lymphocytes (%) (Auto) 10 % (24-48) Monocytes (%) (Auto) 4 % (0-9) Eosinophils (%) (Auto) 0 % (0-3) Basophils (%) (Auto) 1 % (0-3) Neutrophils # (Auto) 10.0 x10^3uL (1.8-7.7) Lymphocytes # (Auto) 1.2 x10^3/uL (1.0-4.8) Monocytes # (Auto) 0.4 x10^3/uL (0.0-1.1) Eosinophils # (Auto) 0.0 x10^3/uL (0.0-0.7) Basophils # (Auto) 0.1 x10^3/uL (0.0-0.2) Segmented Neutrophils % 93 % (35-66) Lymphocytes % 5 % (24-48) Monocytes % 2 % (0-10) Platelet Estimate Adequate (ADEQUATE) Sodium Level 142 mmol/L (136-145) Potassium Level 3.9 mmol/L (3.5-5.1) Chloride Level 100 mmol/L (98-107) Carbon Dioxide Level 28 mmol/L (21-32) Anion Gap 14 (6-14) Blood Urea Nitrogen 13 mg/dL (7-20) Creatinine 1.2 mg/dL (0.6-1.0) Estimated GFR (Cockcroft-Gault) 46.6 BUN/Creatinine Ratio 11 (6-20) Glucose Level 150 mg/dL (70-99) Calcium Level 9.8 mg/dL (8.5-10.1) Total Bilirubin 0.6 mg/dL (0.2-1.0) Aspartate Amino Transf (AST/SGOT) 28 U/L (15-37) Alanine Aminotransferase (ALT/SGPT) 26 U/L (14-59) Alkaline Phosphatase 84 U/L (46-116) Total Protein 8.0 g/dL (6.4-8.2) Albumin 4.4 g/dL (3.4-5.0) Albumin/Globulin Ratio 1.2 (1.0-1.7) Lipase 97 U/L (73-393) Images Images IMPRESSION: Distal small bowel obstruction at the level of the terminal ileum. Assessment/Plan Assessment/Plan sbo vs enteritis bowel rest, hydration, NG to LIS repeat films in AM MAYANK WEBSTER MD 11/19/16 1553: CONSULT Allergies Allergies: Coded Allergies: No Known Drug Allergies (Unverified , 11/19/16) Assessment/Plan Assessment/Plan Overall feeling improved with several BM's today. Reviewed CT and KUB. Abd is soft, minimally tender. Treat conservatively with bowel rest. Likely viral enteritis with the loose stools. Agree with Srikanth's assessment and plan. JAVI CURTIS APRN Nov 19, 2016 14:04 MAYANK WEBSTER MD Nov 19, 2016 15:53
--- NOTE | 2016-11-19 14:15 | RAD ---
Portable abdomen, 11/19/2016: History: Check NG tube placement The NG tube tip is projected over the region of the gastric cardia/medial fundus. There are numerous surgical sutures in this region. The tip may lie in a proximal gastric pouch in this patient with a history of some sort of gastric bypass surgery. A sidehole lies in the distal esophagus. There is persistent gaseous distention of small bowel in the upper abdomen again suggesting small bowel obstruction. There is contrast material in the urinary tract from recent CT study. IMPRESSION: The tip of the NG tube is projected with a region of the gastric cardia/medial fundus, near the level of multiple surgical sutures. It may lie in a proximal gastric pouch related to previous gastric partitioning type surgery. Correlation with the exact surgical history is suggested.
[2016-11-19] MEDS: LEVOTHYROXINE SODIUM 50 MCG in IV NORMAL SALINE 50ML 5 ML IVP SCH (14:42)
[2016-11-19 15:00] VITALS: BP 119/60
[2016-11-19] MEDS: POTASSIUM CHLORIDE 30 MEQ in IV 1/2 NORMAL SALINE 1,000 ML IV SCH (17:34)
[2016-11-19 19:00] VITALS: BP 140/84
[2016-11-19] MEDS: ONDANSETRON PF 4 MG/2 ML VIAL. IV PRN (20:18)
[2016-11-19] MEDS: FAMOTIDINE 20 MG/2 ML VIAL IVP SCH (22:14)
[2016-11-19 23:00] VITALS: BP 123/61
[2016-11-19] MEDS: PROCHLORPERAZINE 10 MG/2 ML VIAL. IV PRN (23:13)
--- NOTE | 2016-11-19 23:23 | RAD ---
History: NG tube placement. Comparison: None. Findings: AP view of the abdomen. Esophagogastric tube is present with the tip projecting at the cardia of the stomach and the side-port projecting at the distal esophagus. Advancement is advised. Suture material is seen in the left upper quadrant. Cholecystectomy clips are present. Dilated small bowel loop measuring 2.5 cm is seen. Impression: 1. Esophagogastric tube tip projects at the cardia the stomach. Advancement advised. 2. Dilated small bowel loop, could represent small bowel obstruction or ileus. Electronically signed by: Ham Eller MD (11/19/2016 11:20 PM) [facility]
[2016-11-20] MEDS: fentaNYL PF VIAL 100 MCG/2 ML VIAL IV PRN ×8 (01:09→22:51)
[2016-11-20] MEDS: POTASSIUM CHLORIDE 30 MEQ in IV 1/2 NORMAL SALINE 1,000 ML IV SCH (01:32)
--- NOTE | 2016-11-20 02:25 | ACF ---
Admission Forms Criteria INTESTINAL OBSTRUCTION Clinical Indications for Admission to Inpatient Care (pechanga/check or initial the applicable condition/criteria) Admission is indicated for 1 or more of the following (1)(2)(3)(4)(5)(6)(7): [X] I. Partial bowel obstruction II. Complete bowel obstruction Extended stay beyond goal length of stay may be needed for(3)(25): [ ]a) Identified etiology (eg, hernia, volvulus, cancer with obstruction) requiring intervention [ ]b) Gallstone ileus (26) [ ]c) Surgical intervention (3)(4)(5)(7)(27)(28)(29)(30): [ ]d) Acute comorbid illness (eg, electrolyte imbalance, hypovolemia, renal failure) The original [employer] content created by [employer] has been revised. The portions of the content which have been revised are identified through the use of italic text or in bold, and [facility] has neither reviewed nor approved the modified material. All other unmodified content is copyright [email or web address] [email or web address]. Please see references footnoted in the original [employer] edition 2017 Admission Criteria Met?: Yes GINO ALONSO Nov 20, 2016 02:25
[2016-11-20 03:00] VITALS: BP 141/78
[2016-11-20] MEDS: ONDANSETRON PF 4 MG/2 ML VIAL. IV PRN ×3 (04:52→18:27)
--- NOTE | 2016-11-20 05:17 | RAD ---
EXAM: KUB HISTORY: ng placement COMPARISON: November 19, 2016 TECHNIQUE: Portable upright AP view of the upper abdomen is obtained. FINDINGS: An NG tube is redemonstrated, similar in position to the previous exam with the distal tip in the region or just beyond the GE junction. Postcholecystectomy clips redemonstrated in the right upper quadrant. Gaseous distention of small bowel loops again seen in the left upper quadrant, similar to the previous exam. Visualized lung bases are clear. IMPRESSION: Distal tip of NG tube remains in the region of the gastric cardia, similar to the previous exam. Further advancement is recommended for optimal positioning. Electronically signed by: Nancy Brandt MD (11/20/2016 5:13 AM) [id number]
[2016-11-20 07:25] VITALS: BP 133/64
[2016-11-20 07:50] LABS: BASO # 0.1 x10^3/uL (0.0-0.2); BASO % 1 % (0-3); EOS % 0 % (0-3); HEMOGLOBIN 13.6 g/dL (12.0-15.5); LYMPH # 1.8 x10^3/uL (1.0-4.8); LYMPH % 17 % (24-48); MEAN CORPUSCULAR HEMOGLOBIN 33 pg (25-35); MEAN CORPUSCULAR HGB CONC 33 g/dL (31-37); MEAN CORPUSCULAR VOLUME 100 fL (79-100); MONO % 8 % (0-9); NEUT % 75 % (31-73); PLATELET COUNT 199 x10^3/uL (140-400); RED BLOOD COUNT 4.11 x10^6/uL (3.50-5.40); RED CELL DISTRIBUTION WIDTH 12.2 % (11.5-14.5)
[2016-11-20 08:03] LABS: CREATININE 0.9 mg/dL (0.6-1.0); POTASSIUM 3.9 mmol/L (3.5-5.1)
[2016-11-20] MEDS: PROCHLORPERAZINE 10 MG/2 ML VIAL. IV PRN ×3 (08:27→22:50)
[2016-11-20] MEDS: FAMOTIDINE 20 MG/2 ML VIAL IVP SCH ×2 (08:27→20:22)
[2016-11-20] MEDS: LEVOTHYROXINE SODIUM 50 MCG in IV NORMAL SALINE 50ML 5 ML IVP SCH (09:28)
[2016-11-20 10:52] VITALS: BP 126/56
--- NOTE | 2016-11-20 11:24 | PDOC ---
SURGICAL PROGRESS NOTE Subjective significant nausea NG replaced due to malposition no flatus or stool not much abdominal pain Vital Signs Vital Signs Date Time Temp Pulse Resp B/P (MAP) Pulse Ox O2 Delivery O2 Flow Rate FiO2 11/20/16 10:52 98.6 71 20 126/56 (79) 96 Room Air 98.6 I&O Intake and Output 11/20/16 07:00 Intake Total 1729.59 ml Output Total 1300 ml Balance 429.59 ml Intake Oral 200 ml IV Total 1529.59 ml Output Urine Total 300 ml Gastric Drainage Total 1000 ml General: Alert, Oriented X3, Cooperative HEENT: Other (NG bilious, large output ) Abdomen: Soft, Other (ND, NTTP on exam) Labs Laboratory Tests Test 11/19/16 07:45 11/19/16 08:00 11/20/16 07:00 Urine Collection Type Unknown Urine Color Yellow Urine Clarity Clear Urine pH 6.0 Urine Specific [place] >=1.030 Urine Protein 30 mg/dL (NEG-TRACE) Urine Glucose (UA) 100 mg/dL (NEG) Urine Ketones (Stick) >160 mg/dL (NEG) Urine Blood Negative (NEG) Urine Nitrite Negative (NEG) Urine Bilirubin Small (NEG) Urine Urobilinogen Dipstick 2.0 mg/dL (0.2 mg/dL) Urine Leukocyte Esterase Negative (NEG) Urine RBC 0 /HPF (0-2) Urine WBC Rare /HPF (0-4) Urine Squamous Epithelial Cells Mod /LPF Urine Bacteria 0 /HPF (0-FEW) Urine Mucus Mod /LPF White Blood Count 11.7 x10^3/uL (4.0-11.0) 11.0 x10^3/uL (4.0-11.0) Red Blood Count 4.44 x10^6/uL (3.50-5.40) 4.11 x10^6/uL (3.50-5.40) Hemoglobin 14.6 g/dL (12.0-15.5) 13.6 g/dL (12.0-15.5) Hematocrit 44.3 % (36.0-47.0) 41.0 % (36.0-47.0) Mean Corpuscular Volume 100 fL (79-100) 100 fL (79-100) Mean Corpuscular Hemoglobin 33 pg (25-35) 33 pg (25-35) Mean Corpuscular Hemoglobin Concent 33 g/dL (31-37) 33 g/dL (31-37) Red Cell Distribution Width 12.1 % (11.5-14.5) 12.2 % (11.5-14.5) Platelet Count 244 x10^3/uL (140-400) 199 x10^3/uL (140-400) Neutrophils (%) (Auto) 85 % (31-73) 75 % (31-73) Lymphocytes (%) (Auto) 10 % (24-48) 17 % (24-48) Monocytes (%) (Auto) 4 % (0-9) 8 % (0-9) Eosinophils (%) (Auto) 0 % (0-3) 0 % (0-3) Basophils (%) (Auto) 1 % (0-3) 1 % (0-3) Neutrophils # (Auto) 10.0 x10^3uL (1.8-7.7) 8.2 x10^3uL (1.8-7.7) Lymphocytes # (Auto) 1.2 x10^3/uL (1.0-4.8) 1.8 x10^3/uL (1.0-4.8) Monocytes # (Auto) 0.4 x10^3/uL (0.0-1.1) 0.8 x10^3/uL (0.0-1.1) Eosinophils # (Auto) 0.0 x10^3/uL (0.0-0.7) 0.0 x10^3/uL (0.0-0.7) Basophils # (Auto) 0.1 x10^3/uL (0.0-0.2) 0.1 x10^3/uL (0.0-0.2) Segmented Neutrophils % 93 % (35-66) Lymphocytes % 5 % (24-48) Monocytes % 2 % (0-10) Platelet Estimate Adequate (ADEQUATE) Sodium Level 142 mmol/L (136-145) 142 mmol/L (136-145) Potassium Level 3.9 mmol/L (3.5-5.1) 3.9 mmol/L (3.5-5.1) Chloride Level 100 mmol/L (98-107) 104 mmol/L (98-107) Carbon Dioxide Level 28 mmol/L (21-32) 28 mmol/L (21-32) Anion Gap 14 (6-14) 10 (6-14) Blood Urea Nitrogen 13 mg/dL (7-20) 17 mg/dL (7-20) Creatinine 1.2 mg/dL (0.6-1.0) 0.9 mg/dL (0.6-1.0) Estimated GFR (Cockcroft-Gault) 46.6 65.0 BUN/Creatinine Ratio 11 (6-20) Glucose Level 150 mg/dL (70-99) 110 mg/dL (70-99) Calcium Level 9.8 mg/dL (8.5-10.1) 9.0 mg/dL (8.5-10.1) Total Bilirubin 0.6 mg/dL (0.2-1.0) Aspartate Amino Transf (AST/SGOT) 28 U/L (15-37) Alanine Aminotransferase (ALT/SGPT) 26 U/L (14-59) Alkaline Phosphatase 84 U/L (46-116) Total Protein 8.0 g/dL (6.4-8.2) Albumin 4.4 g/dL (3.4-5.0) Albumin/Globulin Ratio 1.2 (1.0-1.7) Lipase 97 U/L (73-393) Laboratory Tests Test 11/20/16 07:00 White Blood Count 11.0 x10^3/uL (4.0-11.0) Red Blood Count 4.11 x10^6/uL (3.50-5.40) Hemoglobin 13.6 g/dL (12.0-15.5) Hematocrit 41.0 % (36.0-47.0) Mean Corpuscular Volume 100 fL (79-100) Mean Corpuscular Hemoglobin 33 pg (25-35) Mean Corpuscular Hemoglobin Concent 33 g/dL (31-37) Red Cell Distribution Width 12.2 % (11.5-14.5) Platelet Count 199 x10^3/uL (140-400) Neutrophils (%) (Auto) 75 % (31-73) Lymphocytes (%) (Auto) 17 % (24-48) Monocytes (%) (Auto) 8 % (0-9) Eosinophils (%) (Auto) 0 % (0-3) Basophils (%) (Auto) 1 % (0-3) Neutrophils # (Auto) 8.2 x10^3uL (1.8-7.7) Lymphocytes # (Auto) 1.8 x10^3/uL (1.0-4.8) Monocytes # (Auto) 0.8 x10^3/uL (0.0-1.1) Eosinophils # (Auto) 0.0 x10^3/uL (0.0-0.7) Basophils # (Auto) 0.1 x10^3/uL (0.0-0.2) Sodium Level 142 mmol/L (136-145) Potassium Level 3.9 mmol/L (3.5-5.1) Chloride Level 104 mmol/L (98-107) Carbon Dioxide Level 28 mmol/L (21-32) Anion Gap 10 (6-14) Blood Urea Nitrogen 17 mg/dL (7-20) Creatinine 0.9 mg/dL (0.6-1.0) Estimated GFR (Cockcroft-Gault) 65.0 Glucose Level 110 mg/dL (70-99) Calcium Level 9.0 mg/dL (8.5-10.1) Problem List Problems Medical Problems: (1) Small bowel obstruction Status: Acute Assessment/Plan SBO vs enteritis/ileus significant nausea NG replaced, acute abdominal films pending this AM Continue NG, bowel rest, hydration Problems: JAVI CURTIS APRN Nov 20, 2016 11:24
--- NOTE | 2016-11-20 11:39 | RAD ---
ACUTE ABDOMEN SERIES History:Small bowel obstruction Comparison: 11/20/2016 and 11/19/2016 Findings:Single view of the chest, 2 supine views of the abdomen, and single upright view of the abdomen are submitted. There is again enteric catheter, side port still in the distal esophagus, tip in the proximal stomach. There has been cholecystectomy. There is no dependent pleural fluid or pneumothorax, no significant infiltrate. No free air is identified. Previously seen small bowel dilatation has decreased, no significant gas dilated small bowel identified on this exam. There are cannulated screws of the visualized proximal left femur. There is spondylosis greater inferiorly of the lumbar spine. Impression: 1.No gas dilated small bowel is identified on this exam. Tip of enteric catheter is in the proximal stomach.
[2016-11-20] MEDS: AMINO AC 3%/ELECTROLYTE/GLYCER 1,000 ML IV SCH (12:49)
--- NOTE | 2016-11-20 12:56 | PDOC ---
PROGRESS NOTES Chief Complaint Chief Complaint CC: Abd pain GERD HTN HLD Hypothyroidism Depression History of Present Illness History of Present Illness Pt presented w/abd pain nausea and diarrhea that the pt thought was due to sbo as it has happened to her before. This AM pt resting NAD. CT showed obstruction at terminal ileum. NG tube has been placed. Procalamine has been started. New images will be taken today. Vitals Vitals Vital Signs Date Time Temp Pulse Resp B/P (MAP) Pulse Ox O2 Delivery O2 Flow Rate FiO2 11/20/16 10:52 98.6 71 20 126/56 (79) 96 Room Air 98.6 Physical Exam General: Alert, Oriented X3, Cooperative Heart: Regular rate, Normal S1, Normal S2, No murmurs Lungs: Clear Abdomen: Soft, Other (ND, NTTP on exam) Extremities: No clubbing, No cyanosis Skin: No rashes, No breakdown Labs LABS Laboratory Tests Test 11/20/16 07:00 White Blood Count 11.0 x10^3/uL (4.0-11.0) Red Blood Count 4.11 x10^6/uL (3.50-5.40) Hemoglobin 13.6 g/dL (12.0-15.5) Hematocrit 41.0 % (36.0-47.0) Mean Corpuscular Volume 100 fL (79-100) Mean Corpuscular Hemoglobin 33 pg (25-35) Mean Corpuscular Hemoglobin Concent 33 g/dL (31-37) Red Cell Distribution Width 12.2 % (11.5-14.5) Platelet Count 199 x10^3/uL (140-400) Neutrophils (%) (Auto) 75 % (31-73) Lymphocytes (%) (Auto) 17 % (24-48) Monocytes (%) (Auto) 8 % (0-9) Eosinophils (%) (Auto) 0 % (0-3) Basophils (%) (Auto) 1 % (0-3) Neutrophils # (Auto) 8.2 x10^3uL (1.8-7.7) Lymphocytes # (Auto) 1.8 x10^3/uL (1.0-4.8) Monocytes # (Auto) 0.8 x10^3/uL (0.0-1.1) Eosinophils # (Auto) 0.0 x10^3/uL (0.0-0.7) Basophils # (Auto) 0.1 x10^3/uL (0.0-0.2) Sodium Level 142 mmol/L (136-145) Potassium Level 3.9 mmol/L (3.5-5.1) Chloride Level 104 mmol/L (98-107) Carbon Dioxide Level 28 mmol/L (21-32) Anion Gap 10 (6-14) Blood Urea Nitrogen 17 mg/dL (7-20) Creatinine 0.9 mg/dL (0.6-1.0) Estimated GFR (Cockcroft-Gault) 65.0 Glucose Level 110 mg/dL (70-99) Calcium Level 9.0 mg/dL (8.5-10.1) Review of Systems Review of Systems Complains of abdominal pain Complains of nausea Unable to eat Assessment and Plan Assessmemt and Plan Problems Medical Problems: (1) Small bowel obstruction Status: Acute CC: Abd pain: likely due to sbo or viral enteritis, repeat images, continue bowel rest, continue ondansetron, started procalamine, Dr. Cardona following, appreciate the assistance GERD: Continue famotidine HTN: Continue to follow HLD: Continue to follow Hypothyroidism: Continue levothyroxine Depression: Continue to follow Insomnia: Continue diphenhydramine Problems: Comment Review of Relevant I have reviewed the following items joe (where applicable) has been applied. Labs Laboratory Tests Test 11/19/16 07:45 11/19/16 08:00 11/20/16 07:00 Urine Collection Type Unknown Urine Color Yellow Urine Clarity Clear Urine pH 6.0 Urine Specific [place] >=1.030 Urine Protein 30 mg/dL (NEG-TRACE) Urine Glucose (UA) 100 mg/dL (NEG) Urine Ketones (Stick) >160 mg/dL (NEG) Urine Blood Negative (NEG) Urine Nitrite Negative (NEG) Urine Bilirubin Small (NEG) Urine Urobilinogen Dipstick 2.0 mg/dL (0.2 mg/dL) Urine Leukocyte Esterase Negative (NEG) Urine RBC 0 /HPF (0-2) Urine WBC Rare /HPF (0-4) Urine Squamous Epithelial Cells Mod /LPF Urine Bacteria 0 /HPF (0-FEW) Urine Mucus Mod /LPF White Blood Count 11.7 x10^3/uL (4.0-11.0) 11.0 x10^3/uL (4.0-11.0) Red Blood Count 4.44 x10^6/uL (3.50-5.40) 4.11 x10^6/uL (3.50-5.40) Hemoglobin 14.6 g/dL (12.0-15.5) 13.6 g/dL (12.0-15.5) Hematocrit 44.3 % (36.0-47.0) 41.0 % (36.0-47.0) Mean Corpuscular Volume 100 fL (79-100) 100 fL (79-100) Mean Corpuscular Hemoglobin 33 pg (25-35) 33 pg (25-35) Mean Corpuscular Hemoglobin Concent 33 g/dL (31-37) 33 g/dL (31-37) Red Cell Distribution Width 12.1 % (11.5-14.5) 12.2 % (11.5-14.5) Platelet Count 244 x10^3/uL (140-400) 199 x10^3/uL (140-400) Neutrophils (%) (Auto) 85 % (31-73) 75 % (31-73) Lymphocytes (%) (Auto) 10 % (24-48) 17 % (24-48) Monocytes (%) (Auto) 4 % (0-9) 8 % (0-9) Eosinophils (%) (Auto) 0 % (0-3) 0 % (0-3) Basophils (%) (Auto) 1 % (0-3) 1 % (0-3) Neutrophils # (Auto) 10.0 x10^3uL (1.8-7.7) 8.2 x10^3uL (1.8-7.7) Lymphocytes # (Auto) 1.2 x10^3/uL (1.0-4.8) 1.8 x10^3/uL (1.0-4.8) Monocytes # (Auto) 0.4 x10^3/uL (0.0-1.1) 0.8 x10^3/uL (0.0-1.1) Eosinophils # (Auto) 0.0 x10^3/uL (0.0-0.7) 0.0 x10^3/uL (0.0-0.7) Basophils # (Auto) 0.1 x10^3/uL (0.0-0.2) 0.1 x10^3/uL (0.0-0.2) Segmented Neutrophils % 93 % (35-66) Lymphocytes % 5 % (24-48) Monocytes % 2 % (0-10) Platelet Estimate Adequate (ADEQUATE) Sodium Level 142 mmol/L (136-145) 142 mmol/L (136-145) Potassium Level 3.9 mmol/L (3.5-5.1) 3.9 mmol/L (3.5-5.1) Chloride Level 100 mmol/L (98-107) 104 mmol/L (98-107) Carbon Dioxide Level 28 mmol/L (21-32) 28 mmol/L (21-32) Anion Gap 14 (6-14) 10 (6-14) Blood Urea Nitrogen 13 mg/dL (7-20) 17 mg/dL (7-20) Creatinine 1.2 mg/dL (0.6-1.0) 0.9 mg/dL (0.6-1.0) Estimated GFR (Cockcroft-Gault) 46.6 65.0 BUN/Creatinine Ratio 11 (6-20) Glucose Level 150 mg/dL (70-99) 110 mg/dL (70-99) Calcium Level 9.8 mg/dL (8.5-10.1) 9.0 mg/dL (8.5-10.1) Total Bilirubin 0.6 mg/dL (0.2-1.0) Aspartate Amino Transf (AST/SGOT) 28 U/L (15-37) Alanine Aminotransferase (ALT/SGPT) 26 U/L (14-59) Alkaline Phosphatase 84 U/L (46-116) Total Protein 8.0 g/dL (6.4-8.2) Albumin 4.4 g/dL (3.4-5.0) Albumin/Globulin Ratio 1.2 (1.0-1.7) Lipase 97 U/L (73-393) Laboratory Tests Test 11/20/16 07:00 White Blood Count 11.0 x10^3/uL (4.0-11.0) Red Blood Count 4.11 x10^6/uL (3.50-5.40) Hemoglobin 13.6 g/dL (12.0-15.5) Hematocrit 41.0 % (36.0-47.0) Mean Corpuscular Volume 100 fL (79-100) Mean Corpuscular Hemoglobin 33 pg (25-35) Mean Corpuscular Hemoglobin Concent 33 g/dL (31-37) Red Cell Distribution Width 12.2 % (11.5-14.5) Platelet Count 199 x10^3/uL (140-400) Neutrophils (%) (Auto) 75 % (31-73) Lymphocytes (%) (Auto) 17 % (24-48) Monocytes (%) (Auto) 8 % (0-9) Eosinophils (%) (Auto) 0 % (0-3) Basophils (%) (Auto) 1 % (0-3) Neutrophils # (Auto) 8.2 x10^3uL (1.8-7.7) Lymphocytes # (Auto) 1.8 x10^3/uL (1.0-4.8) Monocytes # (Auto) 0.8 x10^3/uL (0.0-1.1) Eosinophils # (Auto) 0.0 x10^3/uL (0.0-0.7) Basophils # (Auto) 0.1 x10^3/uL (0.0-0.2) Sodium Level 142 mmol/L (136-145) Potassium Level 3.9 mmol/L (3.5-5.1) Chloride Level 104 mmol/L (98-107) Carbon Dioxide Level 28 mmol/L (21-32) Anion Gap 10 (6-14) Blood Urea Nitrogen 17 mg/dL (7-20) Creatinine 0.9 mg/dL (0.6-1.0) Estimated GFR (Cockcroft-Gault) 65.0 Glucose Level 110 mg/dL (70-99) Calcium Level 9.0 mg/dL (8.5-10.1) Medications Current Medications Sodium Chloride 1,000 ml @ 1,000 mls/hr Q1H IV Last administered on 11/19/16 08:26; Start 11/19/16 at 08:30; Stop 11/19/16 at 09:29; Status DC Famotidine (Pepcid) 20 mg 1X ONCE IVP Last administered on 11/19/16 08:28; Start 11/19/16 at 08:15; Stop 11/19/16 at 08:16; Status DC Promethazine HCl (Phenergan Im) 25 mg 1X ONCE IM Last administered on 08:29; Start 11/19/16 at 08:30; Stop 11/19/16 at 08:31; Status DC Fentanyl Citrate (Fentanyl 2ml Vial) 50 mcg PRN Q15MIN PRN IV PAIN GREATER THAN 3/10 Last administered on 11/19/16 08:28; Start 11/19/16 at 08:15; Stop at 11:16; Status DC Iohexol (Omnipaque 300 Mg/ml) 60 ml 1X ONCE IV Last administered on 11/19/16 09:57; Start 11/19/16 at 09:45; Stop 11/19/16 at 09:46; Status DC Info (Do NOT chart on this entry -- for MONITORING) 1 each PRN DAILY PRN MC SEE COMMENTS; Start 11/19/16 at 09:45; Stop 11/21/16 at 09:44 Ondansetron HCl (Zofran) 4 mg PRN Q8HRS PRN IV NAUSEA/VOMITING Last administered on 11/19/16 11:33; Start 11/19/16 at 11:15; Stop 11/19/16 at 11:37 ; Status DC Fentanyl Citrate (Fentanyl 2ml Vial) 50 mcg PRN Q2HR PRN IV PAIN Last administered on 11/20/16 09:05; Start 11/19/16 at 11:15; Stop 11/20/16 at 11:14 ; Status DC Acetaminophen (Tylenol) 650 mg PRN Q4HRS PRN PO FEVER; Start 11/19/16 at 11:15 ; Stop 11/20/16 at 11:14; Status DC Dextrose/Sodium Chloride 1,000 ml @ 125 mls/hr 1X ONCE IV Last administered on 11/19/16 12:57; Start 11/19/16 at 11:30; Stop 11/19/16 at 19:29; Status DC Ondansetron HCl (Zofran) 4 mg PRN Q6HRS PRN IV NAUSEA/VOMITING Last administered on 11/20/16 11:21; Start 11/19/16 at 11:36; Stop 11/20/16 at 11:35 ; Status DC Prochlorperazine Edisylate (Compazine) 10 mg PRN Q6HRS PRN IV NAUSEA/VOMITING Last administered on 11/20/16 08:27; Start 11/19/16 at 11:45 Famotidine (Pepcid) 20 mg BID IVP Last administered on 11/20/16 08:27; Start 11/19/16 at 21:00 Potassium Chloride 30 meq/ Sodium Chloride 1,015 ml @ 75 mls/hr [id number] IV Last administered on 11/20/16 01:32; Start 11/19/16 at 12:00; Stop 11/20/16 at 12:33; Status DC Levothyroxine Sodium 50 mcg/ Sodium Chloride 5 ml @ 100 mls/hr DAILY IVP Last administered on 11/20/16 09:28; Start 11/19/16 at 13:00 Diphenhydramine HCl (Benadryl) 25 mg PRN QHS PRN IVP sleep; Start 11/19/16 at 11:45 Lidocaine HCl (Glydo (Lidocaine) Jelly) [address] [facility] ONCE .ROUTE ; Start at 11:38; Stop 11/19/16 at 11:39; Status DC Fentanyl Citrate (Fentanyl 2ml Vial) 50 mcg PRN Q2HR PRN IV PAIN; Start at 12:30 Ondansetron HCl (Zofran) 8 mg PRN Q6HRS PRN IV NAUSEA/VOMITING; Start 11/20/16 at 12:30 Amino Acids/ Glycerin/ Electrolytes 1,000 ml @ 75 mls/hr [id number] IV ; Start at 12:30 Active Scripts Active Reported Biotin 2,500 Mcg Capsule 10,000 Mcg PO DAILY Magnesium (Magnesium Oxide) 250 Mg Tablet 250 Mg PO DAILY Mariah Allergy (Fexofenadine Hcl) 180 Mg Tablet 1 Tab PO DAILY Gabapentin 300 Mg Capsule 1 Cap PO TID Temazepam 15 Mg Capsule 1-2 Cap PO QHS Promethazine Hcl 12.5 Mg Tablet 1 Tab PO Q6HRS Covaryx H.s. Tablet (Estrogen,Tigist/Me-Testosterone) 1 Each Tablet 1 Each PO Nexium Capsule (Esomeprazole Magnesium) 40 Mg Capsule.dr 40 Mg PO DAILY Hydrocodone-Apap 10-325 (Hydrocodone Bit/Acetaminophen) 1 Each Tablet 1 Each PO PRN Q4HRS Zocor (Simvastatin) 40 Mg Tablet 40 Mg PO DAILY Celebrex (Celecoxib) 200 Mg Capsule 60 Mg PO DAILY Synthroid (Levothyroxine Sodium) 150 Mcg Tablet 100 Mcg PO DAILY Vitals/I & O Vital Sign - Last 24 Hours 11/19/16 11/19/16 11/19/16 11/19/16 13:15 13:15 14:00 14:42 Temp 99.1 99.1 99.1 99.1 Pulse 70 70 Resp 20 20 B/P (MAP) 133/66 (88) 133/66 (88) Pulse Ox 98 98 O2 Delivery Room Air Room Air Room Air Room Air 11/19/16 11/19/16 11/19/16 11/19/16 15:00 19:00 20:00 20:19 Temp 99.4 98.8 99.4 98.8 Pulse 65 82 Resp 18 18 18 B/P (MAP) 119/60 (79) 140/84 (102) Pulse Ox 95 99 O2 Delivery Room Air Room Air Room Air Room Air 11/19/16 11/20/16 11/20/16 11/20/16 23:00 01:09 03:00 04:51 Temp 99.9 99.2 99.9 99.2 Pulse 62 75 Resp 18 17 18 16 B/P (MAP) 123/61 (81) 141/78 (99) Pulse Ox 97 97 O2 Delivery Room Air Room Air Room Air 11/20/16 11/20/16 11/20/16 11/20/16 07:25 08:15 09:05 09:35 Temp 99.5 99.5 Pulse 76 Resp 20 16 B/P (MAP) 133/64 (87) Pulse Ox 97 97 97 O2 Delivery Room Air Room Air Room Air Room Air 11/20/16 10:52 Temp 98.6 98.6 Pulse 71 Resp 20 B/P (MAP) 126/56 (79) Pulse Ox 96 O2 Delivery Room Air Intake and Output 11/19/16 11/19/16 11/20/16 15:00 23:00 07:00 Intake Total 1000 ml 629.59 ml 100 ml Output Total 800 ml 500 ml Balance 1000 ml -170.41 ml -400 ml CASTLE,NIAL K III DO Nov 20, 2016 12:56
[2016-11-20 14:49] VITALS: BP 123/70
[2016-11-20 19:00] VITALS: BP 141/73
[2016-11-20 23:24] VITALS: BP 141/66
[2016-11-21] MEDS: AMINO AC 3%/ELECTROLYTE/GLYCER 1,000 ML IV SCH ×2 (01:16→15:56)
[2016-11-21] MEDS: fentaNYL PF VIAL 100 MCG/2 ML VIAL IV PRN ×6 (01:21→20:39)
[2016-11-21] MEDS: ONDANSETRON PF 4 MG/2 ML VIAL. IV PRN ×3 (01:21→15:54)
[2016-11-21 03:30] VITALS: BP 125/63
[2016-11-21] MEDS: PROCHLORPERAZINE 10 MG/2 ML VIAL. IV PRN ×3 (05:16→20:39)
[2016-11-21 07:00] VITALS: BP 135/76
[2016-11-21 08:19] LABS: BASO # 0.1 x10^3/uL (0.0-0.2); BASO % 1 % (0-3); EOS % 0 % (0-3); HEMATOCRIT 41.7 % (36.0-47.0); HEMOGLOBIN 13.6 g/dL (12.0-15.5); LYMPH # 1.6 x10^3/uL (1.0-4.8); LYMPH % 12 % (24-48); MEAN CORPUSCULAR HEMOGLOBIN 33 pg (25-35); MEAN CORPUSCULAR HGB CONC 33 g/dL (31-37); MEAN CORPUSCULAR VOLUME 100 fL (79-100); MONO % 6 % (0-9); NEUT % 81 % (31-73); PLATELET COUNT 175 x10^3/uL (140-400); RED BLOOD COUNT 4.17 x10^6/uL (3.50-5.40); WHITE BLOOD COUNT 13.6 x10^3/uL (4.0-11.0)
[2016-11-21] MEDS: FAMOTIDINE 20 MG/2 ML VIAL IVP SCH ×2 (08:26→20:16)
[2016-11-21] MEDS: LEVOTHYROXINE SODIUM 50 MCG in IV NORMAL SALINE 50ML 5 ML IVP SCH (08:27)
[2016-11-21 08:28] LABS: CALCIUM 9.1 mg/dL (8.5-10.1); GFR 57.6; POTASSIUM 4.8 mmol/L (3.5-5.1)
--- NOTE | 2016-11-21 09:23 | PDOC ---
SURGICAL PROGRESS NOTE Subjective nausea persists pain better today no flatus or stool Vital Signs Vital Signs Date Time Temp Pulse Resp B/P (MAP) Pulse Ox O2 Delivery O2 Flow Rate FiO2 11/21/16 08:28 16 95 Room Air 11/21/16 07:00 99.0 110 135/76 (95) 99.0 I&O Intake and Output 11/21/16 07:00 Intake Total 700 ml Output Total 1550 ml Balance -850 ml Intake Oral 0 ml IV Total 700 ml Output Urine Total 850 ml Gastric Drainage Total 700 ml General: Alert, Oriented X3, Cooperative, No acute distress HEENT: Other (NG bilious) Abdomen: Soft, Other (ND, NTTP) Labs Laboratory Tests Test 11/20/16 07:00 11/21/16 07:35 White Blood Count 11.0 x10^3/uL (4.0-11.0) 13.6 x10^3/uL (4.0-11.0) Red Blood Count 4.11 x10^6/uL (3.50-5.40) 4.17 x10^6/uL (3.50-5.40) Hemoglobin 13.6 g/dL (12.0-15.5) 13.6 g/dL (12.0-15.5) Hematocrit 41.0 % (36.0-47.0) 41.7 % (36.0-47.0) Mean Corpuscular Volume 100 fL (79-100) 100 fL (79-100) Mean Corpuscular Hemoglobin 33 pg (25-35) 33 pg (25-35) Mean Corpuscular Hemoglobin Concent 33 g/dL (31-37) 33 g/dL (31-37) Red Cell Distribution Width 12.2 % (11.5-14.5) 12.0 % (11.5-14.5) Platelet Count 199 x10^3/uL (140-400) 175 x10^3/uL (140-400) Neutrophils (%) (Auto) 75 % (31-73) 81 % (31-73) Lymphocytes (%) (Auto) 17 % (24-48) 12 % (24-48) Monocytes (%) (Auto) 8 % (0-9) 6 % (0-9) Eosinophils (%) (Auto) 0 % (0-3) 0 % (0-3) Basophils (%) (Auto) 1 % (0-3) 1 % (0-3) Neutrophils # (Auto) 8.2 x10^3uL (1.8-7.7) 11.0 x10^3uL (1.8-7.7) Lymphocytes # (Auto) 1.8 x10^3/uL (1.0-4.8) 1.6 x10^3/uL (1.0-4.8) Monocytes # (Auto) 0.8 x10^3/uL (0.0-1.1) 0.9 x10^3/uL (0.0-1.1) Eosinophils # (Auto) 0.0 x10^3/uL (0.0-0.7) 0.1 x10^3/uL (0.0-0.7) Basophils # (Auto) 0.1 x10^3/uL (0.0-0.2) 0.1 x10^3/uL (0.0-0.2) Sodium Level 142 mmol/L (136-145) 138 mmol/L (136-145) Potassium Level 3.9 mmol/L (3.5-5.1) 4.8 mmol/L (3.5-5.1) Chloride Level 104 mmol/L (98-107) 101 mmol/L (98-107) Carbon Dioxide Level 28 mmol/L (21-32) 31 mmol/L (21-32) Anion Gap 10 (6-14) 6 (6-14) Blood Urea Nitrogen 17 mg/dL (7-20) 20 mg/dL (7-20) Creatinine 0.9 mg/dL (0.6-1.0) 1.0 mg/dL (0.6-1.0) Estimated GFR (Cockcroft-Gault) 65.0 57.6 Glucose Level 110 mg/dL (70-99) 118 mg/dL (70-99) Calcium Level 9.0 mg/dL (8.5-10.1) 9.1 mg/dL (8.5-10.1) Laboratory Tests Test 11/21/16 07:35 White Blood Count 13.6 x10^3/uL (4.0-11.0) Red Blood Count 4.17 x10^6/uL (3.50-5.40) Hemoglobin 13.6 g/dL (12.0-15.5) Hematocrit 41.7 % (36.0-47.0) Mean Corpuscular Volume 100 fL (79-100) Mean Corpuscular Hemoglobin 33 pg (25-35) Mean Corpuscular Hemoglobin Concent 33 g/dL (31-37) Red Cell Distribution Width 12.0 % (11.5-14.5) Platelet Count 175 x10^3/uL (140-400) Neutrophils (%) (Auto) 81 % (31-73) Lymphocytes (%) (Auto) 12 % (24-48) Monocytes (%) (Auto) 6 % (0-9) Eosinophils (%) (Auto) 0 % (0-3) Basophils (%) (Auto) 1 % (0-3) Neutrophils # (Auto) 11.0 x10^3uL (1.8-7.7) Lymphocytes # (Auto) 1.6 x10^3/uL (1.0-4.8) Monocytes # (Auto) 0.9 x10^3/uL (0.0-1.1) Eosinophils # (Auto) 0.1 x10^3/uL (0.0-0.7) Basophils # (Auto) 0.1 x10^3/uL (0.0-0.2) Sodium Level 138 mmol/L (136-145) Potassium Level 4.8 mmol/L (3.5-5.1) Chloride Level 101 mmol/L (98-107) Carbon Dioxide Level 31 mmol/L (21-32) Anion Gap 6 (6-14) Blood Urea Nitrogen 20 mg/dL (7-20) Creatinine 1.0 mg/dL (0.6-1.0) Estimated GFR (Cockcroft-Gault) 57.6 Glucose Level 118 mg/dL (70-99) Calcium Level 9.1 mg/dL (8.5-10.1) Problem List Problems Medical Problems: (1) Small bowel obstruction Status: Acute Assessment/Plan sbo vs enteritis xrays yesterday improved NG 700cc out--continue NG may need to consider SBFT will review with Dr Cardona Problems: JAVI CURTIS [employer] Nov 21, 2016 09:23
[2016-11-21 10:53] VITALS: BP 147/82
[2016-11-21 14:57] VITALS: BP 132/73
--- NOTE | 2016-11-21 15:27 | PDOC ---
PROGRESS NOTES Chief Complaint Chief Complaint CC: Abd pain GERD HTN HLD Hypothyroidism Depression History of Present Illness History of Present Illness Pt presented w/abd pain nausea and diarrhea that the pt thought was due to sbo as it has happened to her before. Last BM was on 11/19/16. This AM pt resting NAD. NG tube is still suctioning. No acute overnight events. Vitals Vitals Vital Signs Date Time Temp Pulse Resp B/P (MAP) Pulse Ox O2 Delivery O2 Flow Rate FiO2 11/21/16 14:57 99.3 96 22 132/73 (92) 95 Room Air 99.3 Physical Exam General: Alert, Oriented X3, Cooperative, No acute distress Heart: Regular rate, Normal S1, Normal S2, No murmurs Lungs: Clear Abdomen: Soft, Other (ND, NTTP) Extremities: No clubbing, No cyanosis Skin: No rashes, No breakdown Labs LABS Laboratory Tests Test 11/21/16 07:35 White Blood Count 13.6 x10^3/uL (4.0-11.0) Red Blood Count 4.17 x10^6/uL (3.50-5.40) Hemoglobin 13.6 g/dL (12.0-15.5) Hematocrit 41.7 % (36.0-47.0) Mean Corpuscular Volume 100 fL (79-100) Mean Corpuscular Hemoglobin 33 pg (25-35) Mean Corpuscular Hemoglobin Concent 33 g/dL (31-37) Red Cell Distribution Width 12.0 % (11.5-14.5) Platelet Count 175 x10^3/uL (140-400) Neutrophils (%) (Auto) 81 % (31-73) Lymphocytes (%) (Auto) 12 % (24-48) Monocytes (%) (Auto) 6 % (0-9) Eosinophils (%) (Auto) 0 % (0-3) Basophils (%) (Auto) 1 % (0-3) Neutrophils # (Auto) 11.0 x10^3uL (1.8-7.7) Lymphocytes # (Auto) 1.6 x10^3/uL (1.0-4.8) Monocytes # (Auto) 0.9 x10^3/uL (0.0-1.1) Eosinophils # (Auto) 0.1 x10^3/uL (0.0-0.7) Basophils # (Auto) 0.1 x10^3/uL (0.0-0.2) Sodium Level 138 mmol/L (136-145) Potassium Level 4.8 mmol/L (3.5-5.1) Chloride Level 101 mmol/L (98-107) Carbon Dioxide Level 31 mmol/L (21-32) Anion Gap 6 (6-14) Blood Urea Nitrogen 20 mg/dL (7-20) Creatinine 1.0 mg/dL (0.6-1.0) Estimated GFR (Cockcroft-Gault) 57.6 Glucose Level 118 mg/dL (70-99) Calcium Level 9.1 mg/dL (8.5-10.1) Review of Systems Review of Systems Complains of shivers and sweats Complains of abd pain Complains of sore throat from NG tube Assessment and Plan Assessmemt and Plan Problems Medical Problems: (1) Small bowel obstruction Status: Acute CC: Abd pain: likely due to sbo or viral enteritis, repeat images, continue bowel rest, continue ondansetron, started procalamine, Dr. Cardona following, appreciate the assistance Leukocytosis: WBC 13.6 today 11/21/16 with L shift, consulted Dr. Rosa, appreciate the assistance GERD: Continue famotidine HTN: Continue to follow HLD: Continue to follow Hypothyroidism: Continue levothyroxine Depression: Continue to follow Insomnia: Continue diphenhydramine Problems: Comment Review of Relevant I have reviewed the following items joe (where applicable) has been applied. Labs Laboratory Tests Test 11/20/16 07:00 11/21/16 07:35 White Blood Count 11.0 x10^3/uL (4.0-11.0) 13.6 x10^3/uL (4.0-11.0) Red Blood Count 4.11 x10^6/uL (3.50-5.40) 4.17 x10^6/uL (3.50-5.40) Hemoglobin 13.6 g/dL (12.0-15.5) 13.6 g/dL (12.0-15.5) Hematocrit 41.0 % (36.0-47.0) 41.7 % (36.0-47.0) Mean Corpuscular Volume 100 fL (79-100) 100 fL (79-100) Mean Corpuscular Hemoglobin 33 pg (25-35) 33 pg (25-35) Mean Corpuscular Hemoglobin Concent 33 g/dL (31-37) 33 g/dL (31-37) Red Cell Distribution Width 12.2 % (11.5-14.5) 12.0 % (11.5-14.5) Platelet Count 199 x10^3/uL (140-400) 175 x10^3/uL (140-400) Neutrophils (%) (Auto) 75 % (31-73) 81 % (31-73) Lymphocytes (%) (Auto) 17 % (24-48) 12 % (24-48) Monocytes (%) (Auto) 8 % (0-9) 6 % (0-9) Eosinophils (%) (Auto) 0 % (0-3) 0 % (0-3) Basophils (%) (Auto) 1 % (0-3) 1 % (0-3) Neutrophils # (Auto) 8.2 x10^3uL (1.8-7.7) 11.0 x10^3uL (1.8-7.7) Lymphocytes # (Auto) 1.8 x10^3/uL (1.0-4.8) 1.6 x10^3/uL (1.0-4.8) Monocytes # (Auto) 0.8 x10^3/uL (0.0-1.1) 0.9 x10^3/uL (0.0-1.1) Eosinophils # (Auto) 0.0 x10^3/uL (0.0-0.7) 0.1 x10^3/uL (0.0-0.7) Basophils # (Auto) 0.1 x10^3/uL (0.0-0.2) 0.1 x10^3/uL (0.0-0.2) Sodium Level 142 mmol/L (136-145) 138 mmol/L (136-145) Potassium Level 3.9 mmol/L (3.5-5.1) 4.8 mmol/L (3.5-5.1) Chloride Level 104 mmol/L (98-107) 101 mmol/L (98-107) Carbon Dioxide Level 28 mmol/L (21-32) 31 mmol/L (21-32) Anion Gap 10 (6-14) 6 (6-14) Blood Urea Nitrogen 17 mg/dL (7-20) 20 mg/dL (7-20) Creatinine 0.9 mg/dL (0.6-1.0) 1.0 mg/dL (0.6-1.0) Estimated GFR (Cockcroft-Gault) 65.0 57.6 Glucose Level 110 mg/dL (70-99) 118 mg/dL (70-99) Calcium Level 9.0 mg/dL (8.5-10.1) 9.1 mg/dL (8.5-10.1) Laboratory Tests Test 11/21/16 07:35 White Blood Count 13.6 x10^3/uL (4.0-11.0) Red Blood Count 4.17 x10^6/uL (3.50-5.40) Hemoglobin 13.6 g/dL (12.0-15.5) Hematocrit 41.7 % (36.0-47.0) Mean Corpuscular Volume 100 fL (79-100) Mean Corpuscular Hemoglobin 33 pg (25-35) Mean Corpuscular Hemoglobin Concent 33 g/dL (31-37) Red Cell Distribution Width 12.0 % (11.5-14.5) Platelet Count 175 x10^3/uL (140-400) Neutrophils (%) (Auto) 81 % (31-73) Lymphocytes (%) (Auto) 12 % (24-48) Monocytes (%) (Auto) 6 % (0-9) Eosinophils (%) (Auto) 0 % (0-3) Basophils (%) (Auto) 1 % (0-3) Neutrophils # (Auto) 11.0 x10^3uL (1.8-7.7) Lymphocytes # (Auto) 1.6 x10^3/uL (1.0-4.8) Monocytes # (Auto) 0.9 x10^3/uL (0.0-1.1) Eosinophils # (Auto) 0.1 x10^3/uL (0.0-0.7) Basophils # (Auto) 0.1 x10^3/uL (0.0-0.2) Sodium Level 138 mmol/L (136-145) Potassium Level 4.8 mmol/L (3.5-5.1) Chloride Level 101 mmol/L (98-107) Carbon Dioxide Level 31 mmol/L (21-32) Anion Gap 6 (6-14) Blood Urea Nitrogen 20 mg/dL (7-20) Creatinine 1.0 mg/dL (0.6-1.0) Estimated GFR (Cockcroft-Gault) 57.6 Glucose Level 118 mg/dL (70-99) Calcium Level 9.1 mg/dL (8.5-10.1) Medications Current Medications Sodium Chloride 1,000 ml @ 1,000 mls/hr Q1H IV Last administered on 11/19/16 08:26; Start 11/19/16 at 08:30; Stop 11/19/16 at 09:29; Status DC Famotidine (Pepcid) 20 mg 1X ONCE IVP Last administered on 11/19/16 08:28; Start 11/19/16 at 08:15; Stop 11/19/16 at 08:16; Status DC Promethazine HCl (Phenergan Im) 25 mg 1X ONCE IM Last administered on 08:29; Start 11/19/16 at 08:30; Stop 11/19/16 at 08:31; Status DC Fentanyl Citrate (Fentanyl 2ml Vial) 50 mcg PRN Q15MIN PRN IV PAIN GREATER THAN 3/10 Last administered on 11/19/16 08:28; Start 11/19/16 at 08:15; Stop at 11:16; Status DC Iohexol (Omnipaque 300 Mg/ml) 60 ml 1X ONCE IV Last administered on 11/19/16 09:57; Start 11/19/16 at 09:45; Stop 11/19/16 at 09:46; Status DC Info (Do NOT chart on this entry -- for MONITORING) 1 each PRN DAILY PRN MC SEE COMMENTS; Start 11/19/16 at 09:45; Stop 11/21/16 at 09:44; Status DC Ondansetron HCl (Zofran) 4 mg PRN Q8HRS PRN IV NAUSEA/VOMITING Last administered on 11/19/16 11:33; Start 11/19/16 at 11:15; Stop 11/19/16 at 11:37 ; Status DC Fentanyl Citrate (Fentanyl 2ml Vial) 50 mcg PRN Q2HR PRN IV PAIN Last administered on 11/20/16 09:05; Start 11/19/16 at 11:15; Stop 11/20/16 at 11:14 ; Status DC Acetaminophen (Tylenol) 650 mg PRN Q4HRS PRN PO FEVER; Start 11/19/16 at 11:15 ; Stop 11/20/16 at 11:14; Status DC Dextrose/Sodium Chloride 1,000 ml @ 125 mls/hr 1X ONCE IV Last administered on 11/19/16 12:57; Start 11/19/16 at 11:30; Stop 11/19/16 at 19:29; Status DC Ondansetron HCl (Zofran) 4 mg PRN Q6HRS PRN IV NAUSEA/VOMITING Last administered on 11/20/16 11:21; Start 11/19/16 at 11:36; Stop 11/20/16 at 11:35 ; Status DC Prochlorperazine Edisylate (Compazine) 10 mg PRN Q6HRS PRN IV NAUSEA/VOMITING ( 2ND CHOICE) Last administered on 11/21/16 12:21; Start 11/19/16 at 11:45 Famotidine (Pepcid) 20 mg BID IVP Last administered on 11/21/16 08:26; Start 11/19/16 at 21:00 Potassium Chloride 30 meq/ Sodium Chloride 1,015 ml @ 75 mls/hr [id number] IV Last administered on 11/20/16 01:32; Start 11/19/16 at 12:00; Stop 11/20/16 at 12:33; Status DC Levothyroxine Sodium 50 mcg/ Sodium Chloride 5 ml @ 100 mls/hr DAILY IVP Last administered on 11/21/16 08:27; Start 11/19/16 at 13:00 Diphenhydramine HCl (Benadryl) 25 mg PRN QHS PRN IVP sleep; Start 11/19/16 at 11:45 Lidocaine HCl (Glydo (Lidocaine) Jelly) 6 maria antonia STK-MED ONCE .ROUTE ; Start at 11:38; Stop 11/19/16 at 11:39; Status DC Fentanyl Citrate (Fentanyl 2ml Vial) 50 mcg PRN Q2HR PRN IV PAIN Last administered on 11/21/16 12:22; Start 11/20/16 at 12:30 Ondansetron HCl (Zofran) 8 mg PRN Q6HRS PRN IV NAUSEA/VOMITING (1st CHOICE) Last administered on 11/21/16 08:28; Start 11/20/16 at 12:30 Amino Acids/ Glycerin/ Electrolytes 1,000 ml @ 75 mls/hr [id number] IV Last administered on 11/21/16 01:16; Start 11/20/16 at 12:30 Lorazepam (Ativan) 1 mg PRN Q6HRS PRN IV ALCOHOL WITHDRAWAL; Start 11/20/16 at 12:45; Status Cancel Active Scripts Active Reported Biotin 2,500 Mcg Capsule 10,000 Mcg PO DAILY Magnesium (Magnesium Oxide) 250 Mg Tablet 250 Mg PO DAILY Mariah Allergy (Fexofenadine Hcl) 180 Mg Tablet 1 Tab PO DAILY Gabapentin 300 Mg Capsule 1 Cap PO TID Temazepam 15 Mg Capsule 1-2 Cap PO QHS Promethazine Hcl 12.5 Mg Tablet 1 Tab PO Q6HRS Covaryx H.s. Tablet (Estrogen,Tigist/Me-Testosterone) 1 Each Tablet 1 Each PO Nexium Capsule (Esomeprazole Magnesium) 40 Mg Capsule.dr 40 Mg PO DAILY Hydrocodone-Apap 10-325 (Hydrocodone Bit/Acetaminophen) 1 Each Tablet 1 Each PO PRN Q4HRS Zocor (Simvastatin) 40 Mg Tablet 40 Mg PO DAILY Celebrex (Celecoxib) 200 Mg Capsule 60 Mg PO DAILY Synthroid (Levothyroxine Sodium) 150 Mcg Tablet 100 Mcg PO DAILY Vitals/I & O Vital Sign - Last 24 Hours 11/20/16 11/20/16 11/20/16 11/20/16 15:40 18:27 19:00 20:00 Temp 98.6 98.6 Pulse 68 Resp 16 16 17 B/P (MAP) 141/73 (95) Pulse Ox 98 98 94 O2 Delivery Room Air Room Air Room Air Room Air 11/20/16 11/20/16 11/20/16 11/21/16 20:35 22:51 23:24 01:21 Temp 98.8 98.8 Pulse 66 Resp 22 22 16 20 B/P (MAP) 141/66 (91) Pulse Ox 94 O2 Delivery Room Air 11/21/16 11/21/16 11/21/16 11/21/16 03:30 03:32 07:00 08:00 Temp 97.7 99.0 97.7 99.0 Pulse 71 110 Resp 22 20 22 B/P (MAP) 125/63 (83) 135/76 (95) Pulse Ox 95 95 O2 Delivery Room Air Room Air Room Air 11/21/16 11/21/16 11/21/16 11/21/16 08:28 10:53 12:22 12:52 Temp 99.4 99.4 Pulse 103 Resp 16 22 16 16 B/P (MAP) 147/82 (103) Pulse Ox 95 97 97 97 O2 Delivery Room Air Room Air Room Air Room Air 11/21/16 14:57 Temp 99.3 99.3 Pulse 96 Resp 22 B/P (MAP) 132/73 (92) Pulse Ox 95 O2 Delivery Room Air Intake and Output 11/20/16 11/20/16 11/21/16 15:00 23:00 07:00 Intake Total 0 ml 0 ml 700 ml Output Total 500 ml 150 ml 900 ml Balance -500 ml -150 ml -200 ml JULIETTE STARK III DO Nov 21, 2016 15:27
[2016-11-21 19:43] VITALS: BP 141/68
[2016-11-21 22:51] VITALS: BP 141/71
[2016-11-22] MEDS: fentaNYL PF VIAL 100 MCG/2 ML VIAL IV PRN ×5 (01:51→20:59)
[2016-11-22] MEDS: ONDANSETRON PF 4 MG/2 ML VIAL. IV PRN ×2 (01:56→10:24)
[2016-11-22 03:14] VITALS: BP 132/68
[2016-11-22] MEDS: PROCHLORPERAZINE 10 MG/2 ML VIAL. IV PRN ×4 (04:21→20:59)
[2016-11-22 04:36] LABS: BASO # 0.1 x10^3/uL (0.0-0.2); BASO % 1 % (0-3); EOS % 1 % (0-3); HEMATOCRIT 40.4 % (36.0-47.0); HEMOGLOBIN 13.2 g/dL (12.0-15.5); LYMPH # 1.5 x10^3/uL (1.0-4.8); LYMPH % 13 % (24-48); MEAN CORPUSCULAR HEMOGLOBIN 33 pg (25-35); MEAN CORPUSCULAR HGB CONC 33 g/dL (31-37); MEAN CORPUSCULAR VOLUME 100 fL (79-100); MONO % 8 % (0-9); NEUT % 77 % (31-73); PLATELET COUNT 155 x10^3/uL (140-400); RED BLOOD COUNT 4.03 x10^6/uL (3.50-5.40); RED CELL DISTRIBUTION WIDTH 11.9 % (11.5-14.5); WHITE BLOOD COUNT 11.8 x10^3/uL (4.0-11.0)
[2016-11-22 04:55] LABS: CALCIUM 8.7 mg/dL (8.5-10.1); GFR 57.6
[2016-11-22] MEDS: AMINO AC 3%/ELECTROLYTE/GLYCER 1,000 ML IV SCH ×2 (05:35→20:23)
[2016-11-22 07:52] VITALS: BP 130/66
[2016-11-22] MEDS: LEVOTHYROXINE SODIUM 50 MCG in IV NORMAL SALINE 50ML 5 ML IVP SCH (08:58)
[2016-11-22] MEDS: FAMOTIDINE 20 MG/2 ML VIAL IVP SCH ×2 (08:59→20:23)
--- NOTE | 2016-11-22 09:10 | PDOC ---
Infectious Disease Note ROS ROS GEN: Denies fevers, chills, sweats HEENT: Denies blurred vision, sore throat CV: Denies chest pain RESP: Denies shortness of air, cough GI: Denies n/v/d NEURO: Denies confusion, dizziness MSK: Denies weakness, joint pain/swelling Vital Sign Vital Signs Vital Signs Date Time Temp Pulse Resp B/P (MAP) Pulse Ox O2 Delivery O2 Flow Rate FiO2 11/22/16 07:52 99.0 75 16 130/66 (87) 97 Room Air 99.0 Physical Exam PHYSICAL EXAM GENERAL: NAD, Alert HEENT: PERRL, OC/OP NECK: Supple, no JVD, no LN LUNGS: Clear HEART: S1S2, no gallop, no murmur ABD: Soft, NT, no organomegaly, no rebound EXT: No edema, no cyanosis PATIENT SERVICES ASSISTANT: Alert, oriented x 3, no focal neurologic deficit SKIN: No rash IV: ok Labs Lab Laboratory Tests Test 11/22/16 03:30 White Blood Count 11.8 x10^3/uL (4.0-11.0) Red Blood Count 4.03 x10^6/uL (3.50-5.40) Hemoglobin 13.2 g/dL (12.0-15.5) Hematocrit 40.4 % (36.0-47.0) Mean Corpuscular Volume 100 fL (79-100) Mean Corpuscular Hemoglobin 33 pg (25-35) Mean Corpuscular Hemoglobin Concent 33 g/dL (31-37) Red Cell Distribution Width 11.9 % (11.5-14.5) Platelet Count 155 x10^3/uL (140-400) Neutrophils (%) (Auto) 77 % (31-73) Lymphocytes (%) (Auto) 13 % (24-48) Monocytes (%) (Auto) 8 % (0-9) Eosinophils (%) (Auto) 1 % (0-3) Basophils (%) (Auto) 1 % (0-3) Neutrophils # (Auto) 9.1 x10^3uL (1.8-7.7) Lymphocytes # (Auto) 1.5 x10^3/uL (1.0-4.8) Monocytes # (Auto) 1.0 x10^3/uL (0.0-1.1) Eosinophils # (Auto) 0.1 x10^3/uL (0.0-0.7) Basophils # (Auto) 0.1 x10^3/uL (0.0-0.2) Sodium Level 138 mmol/L (136-145) Potassium Level 4.0 mmol/L (3.5-5.1) Chloride Level 102 mmol/L (98-107) Carbon Dioxide Level 30 mmol/L (21-32) Anion Gap 6 (6-14) Blood Urea Nitrogen 16 mg/dL (7-20) Creatinine 1.0 mg/dL (0.6-1.0) Estimated GFR (Cockcroft-Gault) 57.6 Glucose Level 101 mg/dL (70-99) Calcium Level 8.7 mg/dL (8.5-10.1) Objective Assessment Leukocytosis - better Low grade temps ? reactive SBO - ? resolving Loose stool times one. unlikely C-diff as WBC improving. No abx for over a year and no oral intake Plan Plan of Care Cont to hold abx F/u labs If spikes to 101 will cult and add abx hope for NGT removal - await Surgical F/u No need for isolation thank you # [phone] CHAYA GAYLE MD Nov 22, 2016 09:10
--- NOTE | 2016-11-22 09:55 | CONS ---
DATE OF CONSULTATION: 11/22/2016 PATIENT'S ROOM: 667. REQUESTING PHYSICIAN: Dr. Stewart. REASON FOR CONSULTATION: Leukocytosis. HISTORY OF PRESENT ILLNESS: The patient is a 56-year-old female who in 2006 underwent gastric bypass surgery. Several days ago, 2 days prior to admission, she developed diffuse abdominal pain. This was then accompanied by vomiting and increased stools that were initially formed, but then became jelly. No blood was seen. She had some subjective fevers and chills. Denied any recent ill contacts and she presented to on 11/19/2016. She had a temperature of 99.5 on arrival. White blood cell count was 11.7. Urinalysis was clean. She underwent a CT scan of the abdomen and pelvis and was found to have a distal small-bowel obstruction at the level of the terminal ileum. She had an NG tube placed and she is feeling a little bit better, but she continues to have some subjective chills and sweats and feelings of hot and cold. I was consulted yesterday secondary to her white blood cell count increasing to 13.6, but at that time, I did not add any antimicrobials. Currently, she is sitting upright in bed. She says she is feeling somewhat better since the NG tube has been placed. She is now starting to pass some flatus and had a small gelatinous stool. She has a little bit of a runny nose, but no cough, shortness of air or chest pain. No dysuria, frequency or urgency. PAST MEDICAL HISTORY: Positive for obesity, hyperlipidemia, depression, hypothyroidism, gastroesophageal reflux disease, low back pain. PAST SURGICAL HISTORY: Positive for cholecystectomy, , gastric bypass, total abdominal hysterectomy, femur repair down the left, recent Achilles tendon repair. REVIEW OF SYSTEMS: Otherwise negative except for mentioned above. ALLERGIES: There are no known drug allergies. SOCIAL HISTORY: Lives with family. No tobacco or alcohol. FAMILY HISTORY: Positive for hypertension. CURRENT MEDICATIONS: Include levothyroxine, Benadryl, Pepcid, Compazine. PHYSICAL EXAMINATION: VITAL SIGNS: T-max has been 100.2 last evening, currently 99; pulse 75; respirations 16; blood pressure 130/66; satting 97% on room air. CONSTITUTIONAL: She is pleasant and cooperative. She is in no acute distress. HEENT: Pupils are equal and reactive. Normal conjunctivae. NG tube in place. Oral cavity, pharynx is clear. NECK: Supple, no JVD. LUNGS: Clear to auscultation bilaterally. HEART: S1, S2. ABDOMEN: Morbidly obese, soft with decreased bowel sounds, no guarding. EXTREMITIES: No clubbing, cyanosis or gross edema. SKIN: Warm to touch without signs of rash. NEUROLOGIC: She is nonfocal and appropriate. PSYCHIATRIC: Affect is pleasant. LABORATORY DATA: White count today 11.8, hemoglobin of 13.2, platelets of 155, segs are 77, lymphs are 13, creatinine 1, glucose of 101. She had normal liver function study test when she arrived. Urinalysis on the was negative. Most recent acute abdominal series shows no gas, dilated small bowel identified, tip of catheter is in the proximal stomach. A chest x-ray obtained on the was without acute process by my visualization. IMPRESSION: 1. Leukocytosis, improved. 2. Low-grade temperature, questionable reactive. 3. Small-bowel obstruction, questionable resolving. 4. Loose stool x 1, unlikely C. diff. WBC is improving. She has not had any antibiotics for over a year and she has had decreased oral intake, which may account for her loose stool. RECOMMENDATIONS: For now, continue to hold antibiotics, we will follow up on labs. If she spikes a temperature up to 101, we will culture her and add antibiotics. She is a little bit at high risk for sinus infection given the NG tube, but hopefully, the NG tube will be removed, await for surgical followup. There is no need for isolation. Thank you for allowing me to participate in this patient's care. If you have any questions, please do not hesitate to contact me. CHAYA GAYLE MD DR: [email or web address]/[email or web address] JOB#: [id number] / [id number]
[2016-11-22 11:21] VITALS: BP 138/78
--- NOTE | 2016-11-22 12:21 | PDOC ---
PROGRESS NOTES Chief Complaint Chief Complaint CC: Abd pain GERD HTN HLD Hypothyroidism Depression History of Present Illness History of Present Illness Pt presented w/abd pain nausea and diarrhea that the pt thought was due to sbo as it has happened to her before. Last BM was on 11/19/16. This AM pt resting NAD. NG tube is still suctioning. No acute overnight events. Pt is beginning to have flatus. Vitals Vitals Vital Signs Date Time Temp Pulse Resp B/P (MAP) Pulse Ox O2 Delivery O2 Flow Rate FiO2 11/22/16 11:41 22 98 Room Air 11/22/16 11:21 97.7 76 138/78 (98) 97.7 Physical Exam General: Alert, Oriented X3, Cooperative, No acute distress Heart: Regular rate, Normal S1, Normal S2, No murmurs Lungs: Clear Abdomen: Soft, Other (ND, NTTP) Extremities: No clubbing, No cyanosis Skin: No rashes, No breakdown Labs LABS Laboratory Tests Test 11/22/16 03:30 White Blood Count 11.8 x10^3/uL (4.0-11.0) Red Blood Count 4.03 x10^6/uL (3.50-5.40) Hemoglobin 13.2 g/dL (12.0-15.5) Hematocrit 40.4 % (36.0-47.0) Mean Corpuscular Volume 100 fL (79-100) Mean Corpuscular Hemoglobin 33 pg (25-35) Mean Corpuscular Hemoglobin Concent 33 g/dL (31-37) Red Cell Distribution Width 11.9 % (11.5-14.5) Platelet Count 155 x10^3/uL (140-400) Neutrophils (%) (Auto) 77 % (31-73) Lymphocytes (%) (Auto) 13 % (24-48) Monocytes (%) (Auto) 8 % (0-9) Eosinophils (%) (Auto) 1 % (0-3) Basophils (%) (Auto) 1 % (0-3) Neutrophils # (Auto) 9.1 x10^3uL (1.8-7.7) Lymphocytes # (Auto) 1.5 x10^3/uL (1.0-4.8) Monocytes # (Auto) 1.0 x10^3/uL (0.0-1.1) Eosinophils # (Auto) 0.1 x10^3/uL (0.0-0.7) Basophils # (Auto) 0.1 x10^3/uL (0.0-0.2) Sodium Level 138 mmol/L (136-145) Potassium Level 4.0 mmol/L (3.5-5.1) Chloride Level 102 mmol/L (98-107) Carbon Dioxide Level 30 mmol/L (21-32) Anion Gap 6 (6-14) Blood Urea Nitrogen 16 mg/dL (7-20) Creatinine 1.0 mg/dL (0.6-1.0) Estimated GFR (Cockcroft-Gault) 57.6 Glucose Level 101 mg/dL (70-99) Calcium Level 8.7 mg/dL (8.5-10.1) Review of Systems Review of Systems Complains of throat pain Complains of abd pain Assessment and Plan Assessmemt and Plan Problems Medical Problems: (1) Small bowel obstruction Status: Acute Status: Acute CC: Abd pain: likely due to sbo or viral enteritis, repeat images, continue bowel rest, continue ondansetron, continue procalamine, hope to DC NG if okay with surgery, Dr. Cardona following, appreciate the assistance Leukocytosis: WBC 11.8 today 11/22/16 with L shift, consulted Dr. Sorto, appreciate the assistance, hold abx at this time as per ID GERD: Continue famotidine HTN: Continue to follow HLD: Continue to follow Hypothyroidism: Continue levothyroxine Depression: Continue to follow Insomnia: Continue diphenhydramine Dispo: Possible DC tomorrow if ok with surgery Problems: Comment Review of Relevant I have reviewed the following items joe (where applicable) has been applied. Labs Laboratory Tests Test 11/21/16 07:35 11/22/16 03:30 White Blood Count 13.6 x10^3/uL (4.0-11.0) 11.8 x10^3/uL (4.0-11.0) Red Blood Count 4.17 x10^6/uL (3.50-5.40) 4.03 x10^6/uL (3.50-5.40) Hemoglobin 13.6 g/dL (12.0-15.5) 13.2 g/dL (12.0-15.5) Hematocrit 41.7 % (36.0-47.0) 40.4 % (36.0-47.0) Mean Corpuscular Volume 100 fL (79-100) 100 fL (79-100) Mean Corpuscular Hemoglobin 33 pg (25-35) 33 pg (25-35) Mean Corpuscular Hemoglobin Concent 33 g/dL (31-37) 33 g/dL (31-37) Red Cell Distribution Width 12.0 % (11.5-14.5) 11.9 % (11.5-14.5) Platelet Count 175 x10^3/uL (140-400) 155 x10^3/uL (140-400) Neutrophils (%) (Auto) 81 % (31-73) 77 % (31-73) Lymphocytes (%) (Auto) 12 % (24-48) 13 % (24-48) Monocytes (%) (Auto) 6 % (0-9) 8 % (0-9) Eosinophils (%) (Auto) 0 % (0-3) 1 % (0-3) Basophils (%) (Auto) 1 % (0-3) 1 % (0-3) Neutrophils # (Auto) 11.0 x10^3uL (1.8-7.7) 9.1 x10^3uL (1.8-7.7) Lymphocytes # (Auto) 1.6 x10^3/uL (1.0-4.8) 1.5 x10^3/uL (1.0-4.8) Monocytes # (Auto) 0.9 x10^3/uL (0.0-1.1) 1.0 x10^3/uL (0.0-1.1) Eosinophils # (Auto) 0.1 x10^3/uL (0.0-0.7) 0.1 x10^3/uL (0.0-0.7) Basophils # (Auto) 0.1 x10^3/uL (0.0-0.2) 0.1 x10^3/uL (0.0-0.2) Sodium Level 138 mmol/L (136-145) 138 mmol/L (136-145) Potassium Level 4.8 mmol/L (3.5-5.1) 4.0 mmol/L (3.5-5.1) Chloride Level 101 mmol/L (98-107) 102 mmol/L (98-107) Carbon Dioxide Level 31 mmol/L (21-32) 30 mmol/L (21-32) Anion Gap 6 (6-14) 6 (6-14) Blood Urea Nitrogen 20 mg/dL (7-20) 16 mg/dL (7-20) Creatinine 1.0 mg/dL (0.6-1.0) 1.0 mg/dL (0.6-1.0) Estimated GFR (Cockcroft-Gault) 57.6 57.6 Glucose Level 118 mg/dL (70-99) 101 mg/dL (70-99) Calcium Level 9.1 mg/dL (8.5-10.1) 8.7 mg/dL (8.5-10.1) Laboratory Tests Test 11/22/16 03:30 White Blood Count 11.8 x10^3/uL (4.0-11.0) Red Blood Count 4.03 x10^6/uL (3.50-5.40) Hemoglobin 13.2 g/dL (12.0-15.5) Hematocrit 40.4 % (36.0-47.0) Mean Corpuscular Volume 100 fL (79-100) Mean Corpuscular Hemoglobin 33 pg (25-35) Mean Corpuscular Hemoglobin Concent 33 g/dL (31-37) Red Cell Distribution Width 11.9 % (11.5-14.5) Platelet Count 155 x10^3/uL (140-400) Neutrophils (%) (Auto) 77 % (31-73) Lymphocytes (%) (Auto) 13 % (24-48) Monocytes (%) (Auto) 8 % (0-9) Eosinophils (%) (Auto) 1 % (0-3) Basophils (%) (Auto) 1 % (0-3) Neutrophils # (Auto) 9.1 x10^3uL (1.8-7.7) Lymphocytes # (Auto) 1.5 x10^3/uL (1.0-4.8) Monocytes # (Auto) 1.0 x10^3/uL (0.0-1.1) Eosinophils # (Auto) 0.1 x10^3/uL (0.0-0.7) Basophils # (Auto) 0.1 x10^3/uL (0.0-0.2) Sodium Level 138 mmol/L (136-145) Potassium Level 4.0 mmol/L (3.5-5.1) Chloride Level 102 mmol/L (98-107) Carbon Dioxide Level 30 mmol/L (21-32) Anion Gap 6 (6-14) Blood Urea Nitrogen 16 mg/dL (7-20) Creatinine 1.0 mg/dL (0.6-1.0) Estimated GFR (Cockcroft-Gault) 57.6 Glucose Level 101 mg/dL (70-99) Calcium Level 8.7 mg/dL (8.5-10.1) Medications Current Medications Sodium Chloride 1,000 ml @ 1,000 mls/hr Q1H IV Last administered on 11/19/16 08:26; Start 11/19/16 at 08:30; Stop 11/19/16 at 09:29; Status DC Famotidine (Pepcid) 20 mg 1X ONCE IVP Last administered on 11/19/16 08:28; Start 11/19/16 at 08:15; Stop 11/19/16 at 08:16; Status DC Promethazine HCl (Phenergan Im) 25 mg 1X ONCE IM Last administered on 08:29; Start 11/19/16 at 08:30; Stop 11/19/16 at 08:31; Status DC Fentanyl Citrate (Fentanyl 2ml Vial) 50 mcg PRN Q15MIN PRN IV PAIN GREATER THAN 3/10 Last administered on 11/19/16 08:28; Start 11/19/16 at 08:15; Stop at 11:16; Status DC Iohexol (Omnipaque 300 Mg/ml) 60 ml 1X ONCE IV Last administered on 11/19/16 09:57; Start 11/19/16 at 09:45; Stop 11/19/16 at 09:46; Status DC Info (Do NOT chart on this entry -- for MONITORING) 1 each PRN DAILY PRN MC SEE COMMENTS; Start 11/19/16 at 09:45; Stop 11/21/16 at 09:44; Status DC Ondansetron HCl (Zofran) 4 mg PRN Q8HRS PRN IV NAUSEA/VOMITING Last administered on 11/19/16 11:33; Start 11/19/16 at 11:15; Stop 11/19/16 at 11:37 ; Status DC Fentanyl Citrate (Fentanyl 2ml Vial) 50 mcg PRN Q2HR PRN IV PAIN Last administered on 11/20/16 09:05; Start 11/19/16 at 11:15; Stop 11/20/16 at 11:14 ; Status DC Acetaminophen (Tylenol) 650 mg PRN Q4HRS PRN PO FEVER; Start 11/19/16 at 11:15 ; Stop 11/20/16 at 11:14; Status DC Dextrose/Sodium Chloride 1,000 ml @ 125 mls/hr 1X ONCE IV Last administered on 11/19/16 12:57; Start 11/19/16 at 11:30; Stop 11/19/16 at 19:29; Status DC Ondansetron HCl (Zofran) 4 mg PRN Q6HRS PRN IV NAUSEA/VOMITING Last administered on 11/20/16 11:21; Start 11/19/16 at 11:36; Stop 11/20/16 at 11:35 ; Status DC Prochlorperazine Edisylate (Compazine) 10 mg PRN Q6HRS PRN IV NAUSEA/VOMITING ( 2ND CHOICE) Last administered on 11/22/16 11:41; Start 11/19/16 at 11:45 Famotidine (Pepcid) 20 mg BID IVP Last administered on 11/21/16 20:16; Start 11/19/16 at 21:00 Potassium Chloride 30 meq/ Sodium Chloride 1,015 ml @ 75 mls/hr [id number] IV Last administered on 11/20/16 01:32; Start 11/19/16 at 12:00; Stop 11/20/16 at 12:33; Status DC Levothyroxine Sodium 50 mcg/ Sodium Chloride 5 ml @ 100 mls/hr DAILY IVP Last administered on 11/22/16 08:58; Start 11/19/16 at 13:00 Diphenhydramine HCl (Benadryl) 25 mg PRN QHS PRN IVP sleep; Start 11/19/16 at 11:45 Lidocaine HCl (Glydo (Lidocaine) Jelly) 6 maria antonia STK-MED ONCE .ROUTE ; Start at 11:38; Stop 11/19/16 at 11:39; Status DC Fentanyl Citrate (Fentanyl 2ml Vial) 50 mcg PRN Q2HR PRN IV PAIN Last administered on 11/22/16 11:41; Start 11/20/16 at 12:30 Ondansetron HCl (Zofran) 8 mg PRN Q6HRS PRN IV NAUSEA/VOMITING (1st CHOICE) Last administered on 11/22/16 10:24; Start 11/20/16 at 12:30 Amino Acids/ Glycerin/ Electrolytes 1,000 ml @ 75 mls/hr [id number] IV Last administered on 11/22/16 05:35; Start 11/20/16 at 12:30 Lorazepam (Ativan) 1 mg PRN Q6HRS PRN IV ALCOHOL WITHDRAWAL; Start 11/20/16 at 12:45; Status Cancel Active Scripts Active Reported Biotin 2,500 Mcg Capsule 10,000 Mcg PO DAILY Magnesium (Magnesium Oxide) 250 Mg Tablet 250 Mg PO DAILY Mariah Allergy (Fexofenadine Hcl) 180 Mg Tablet 1 Tab PO DAILY Gabapentin 300 Mg Capsule 1 Cap PO TID Temazepam 15 Mg Capsule 1-2 Cap PO QHS Promethazine Hcl 12.5 Mg Tablet 1 Tab PO Q6HRS Covaryx H.s. Tablet (Estrogen,Tigist/Me-Testosterone) 1 Each Tablet 1 Each PO Nexium Capsule (Esomeprazole Magnesium) 40 Mg Capsule.dr 40 Mg PO DAILY Hydrocodone-Apap 10-325 (Hydrocodone Bit/Acetaminophen) 1 Each Tablet 1 Each PO PRN Q4HRS Zocor (Simvastatin) 40 Mg Tablet 40 Mg PO DAILY Celebrex (Celecoxib) 200 Mg Capsule 60 Mg PO DAILY Synthroid (Levothyroxine Sodium) 150 Mcg Tablet 100 Mcg PO DAILY Vitals/I & O Vital Sign - Last 24 Hours 11/21/16 11/21/16 11/21/16 11/21/16 12:22 14:57 15:52 16:22 Temp 99.3 99.3 Pulse 96 Resp 16 22 16 16 B/P (MAP) 132/73 (92) Pulse Ox 97 95 95 O2 Delivery Room Air Room Air Room Air 11/21/16 11/21/16 11/21/16 11/21/16 19:43 20:00 20:39 22:51 Temp 99.7 100.2 99.7 100.2 Pulse 72 78 Resp 16 14 B/P (MAP) 141/68 (92) 141/71 (94) Pulse Ox 96 98 O2 Delivery Room Air Room Air Room Air Room Air 11/22/16 11/22/16 11/22/16 11/22/16 01:51 03:14 04:26 05:00 Temp 99.7 99.7 Pulse 70 Resp 16 B/P (MAP) 132/68 (89) Pulse Ox 96 96 O2 Delivery Room Air Room Air Room Air Room Air 11/22/16 11/22/16 11/22/16 07:52 11:21 11:41 Temp 99.0 97.7 99.0 97.7 Pulse 75 76 Resp 16 16 22 B/P (MAP) 130/66 (87) 138/78 (98) Pulse Ox 97 98 98 O2 Delivery Room Air Room Air Room Air Intake and Output 11/21/16 11/21/16 11/22/16 15:00 23:00 07:00 Intake Total 0 ml 200 ml Output Total 300 ml Balance -300 ml 200 ml JULIETTE STARK III DO Nov 22, 2016 12:21
--- NOTE | 2016-11-22 12:46 | PDOC ---
JAVI CURTIS OFFICE COMMUNICATION PROFESSOR 11/22/16 1246: SURGICAL PROGRESS NOTE Subjective no n/v + flatus and small bm minimal pain Vital Signs Vital Signs Date Time Temp Pulse Resp B/P (MAP) Pulse Ox O2 Delivery O2 Flow Rate FiO2 11/22/16 12:21 20 98 Room Air 11/22/16 11:21 97.7 76 138/78 (98) 97.7 I&O Intake and Output 11/22/16 07:00 Intake Total 200 ml Output Total 300 ml Balance -100 ml Intake Oral 200 ml Output Urine Total 300 ml # Voids 3 General: Alert, Oriented X3, Cooperative, No acute distress HEENT: Other (NG bilious, decreasing output) Abdomen: Soft, Other (ND, NTTP) Labs Laboratory Tests Test 11/21/16 07:35 11/22/16 03:30 White Blood Count 13.6 x10^3/uL (4.0-11.0) 11.8 x10^3/uL (4.0-11.0) Red Blood Count 4.17 x10^6/uL (3.50-5.40) 4.03 x10^6/uL (3.50-5.40) Hemoglobin 13.6 g/dL (12.0-15.5) 13.2 g/dL (12.0-15.5) Hematocrit 41.7 % (36.0-47.0) 40.4 % (36.0-47.0) Mean Corpuscular Volume 100 fL (79-100) 100 fL (79-100) Mean Corpuscular Hemoglobin 33 pg (25-35) 33 pg (25-35) Mean Corpuscular Hemoglobin Concent 33 g/dL (31-37) 33 g/dL (31-37) Red Cell Distribution Width 12.0 % (11.5-14.5) 11.9 % (11.5-14.5) Platelet Count 175 x10^3/uL (140-400) 155 x10^3/uL (140-400) Neutrophils (%) (Auto) 81 % (31-73) 77 % (31-73) Lymphocytes (%) (Auto) 12 % (24-48) 13 % (24-48) Monocytes (%) (Auto) 6 % (0-9) 8 % (0-9) Eosinophils (%) (Auto) 0 % (0-3) 1 % (0-3) Basophils (%) (Auto) 1 % (0-3) 1 % (0-3) Neutrophils # (Auto) 11.0 x10^3uL (1.8-7.7) 9.1 x10^3uL (1.8-7.7) Lymphocytes # (Auto) 1.6 x10^3/uL (1.0-4.8) 1.5 x10^3/uL (1.0-4.8) Monocytes # (Auto) 0.9 x10^3/uL (0.0-1.1) 1.0 x10^3/uL (0.0-1.1) Eosinophils # (Auto) 0.1 x10^3/uL (0.0-0.7) 0.1 x10^3/uL (0.0-0.7) Basophils # (Auto) 0.1 x10^3/uL (0.0-0.2) 0.1 x10^3/uL (0.0-0.2) Sodium Level 138 mmol/L (136-145) 138 mmol/L (136-145) Potassium Level 4.8 mmol/L (3.5-5.1) 4.0 mmol/L (3.5-5.1) Chloride Level 101 mmol/L (98-107) 102 mmol/L (98-107) Carbon Dioxide Level 31 mmol/L (21-32) 30 mmol/L (21-32) Anion Gap 6 (6-14) 6 (6-14) Blood Urea Nitrogen 20 mg/dL (7-20) 16 mg/dL (7-20) Creatinine 1.0 mg/dL (0.6-1.0) 1.0 mg/dL (0.6-1.0) Estimated GFR (Cockcroft-Gault) 57.6 57.6 Glucose Level 118 mg/dL (70-99) 101 mg/dL (70-99) Calcium Level 9.1 mg/dL (8.5-10.1) 8.7 mg/dL (8.5-10.1) Laboratory Tests Test 11/22/16 03:30 White Blood Count 11.8 x10^3/uL (4.0-11.0) Red Blood Count 4.03 x10^6/uL (3.50-5.40) Hemoglobin 13.2 g/dL (12.0-15.5) Hematocrit 40.4 % (36.0-47.0) Mean Corpuscular Volume 100 fL (79-100) Mean Corpuscular Hemoglobin 33 pg (25-35) Mean Corpuscular Hemoglobin Concent 33 g/dL (31-37) Red Cell Distribution Width 11.9 % (11.5-14.5) Platelet Count 155 x10^3/uL (140-400) Neutrophils (%) (Auto) 77 % (31-73) Lymphocytes (%) (Auto) 13 % (24-48) Monocytes (%) (Auto) 8 % (0-9) Eosinophils (%) (Auto) 1 % (0-3) Basophils (%) (Auto) 1 % (0-3) Neutrophils # (Auto) 9.1 x10^3uL (1.8-7.7) Lymphocytes # (Auto) 1.5 x10^3/uL (1.0-4.8) Monocytes # (Auto) 1.0 x10^3/uL (0.0-1.1) Eosinophils # (Auto) 0.1 x10^3/uL (0.0-0.7) Basophils # (Auto) 0.1 x10^3/uL (0.0-0.2) Sodium Level 138 mmol/L (136-145) Potassium Level 4.0 mmol/L (3.5-5.1) Chloride Level 102 mmol/L (98-107) Carbon Dioxide Level 30 mmol/L (21-32) Anion Gap 6 (6-14) Blood Urea Nitrogen 16 mg/dL (7-20) Creatinine 1.0 mg/dL (0.6-1.0) Estimated GFR (Cockcroft-Gault) 57.6 Glucose Level 101 mg/dL (70-99) Calcium Level 8.7 mg/dL (8.5-10.1) Problem List Problems Medical Problems: (1) Small bowel obstruction Status: Acute Assessment/Plan sbo vs ileus decreasing NG output, + stool will clamp NG today Problems: MAYANK WEBSTER MD 11/22/16 0308: SURGICAL PROGRESS NOTE Assessment/Plan SBO appears to be improving with no abdominal pain and small bm with flatus. Agree with Srikanth's assessment and plan. Problems: JAVI CURTIS APRN Nov 22, 2016 12:46 MAYANK WEBSTER MD Nov 22, 2016 17:01
[2016-11-22 15:29] VITALS: BP 128/73
[2016-11-22 19:51] VITALS: BP 133/70
[2016-11-22 23:11] VITALS: BP 125/69
[2016-11-23] MEDS: fentaNYL PF VIAL 100 MCG/2 ML VIAL IV PRN ×7 (01:19→23:21)
[2016-11-23 04:19] LABS: BASO # 0.1 x10^3/uL (0.0-0.2); BASO % 1 % (0-3); EOS % 3 % (0-3); HEMOGLOBIN 13.5 g/dL (12.0-15.5); LYMPH # 1.6 x10^3/uL (1.0-4.8); LYMPH % 18 % (24-48); MEAN CORPUSCULAR HEMOGLOBIN 33 pg (25-35); MEAN CORPUSCULAR HGB CONC 33 g/dL (31-37); MEAN CORPUSCULAR VOLUME 100 fL (79-100); MONO % 11 % (0-9); NEUT % 68 % (31-73); PLATELET COUNT 138 x10^3/uL (140-400); RED BLOOD COUNT 4.09 x10^6/uL (3.50-5.40); RED CELL DISTRIBUTION WIDTH 11.7 % (11.5-14.5); WHITE BLOOD COUNT 9.1 x10^3/uL (4.0-11.0)
[2016-11-23 04:34] LABS: CALCIUM 8.8 mg/dL (8.5-10.1); GFR 57.6; POTASSIUM 4.3 mmol/L (3.5-5.1)
[2016-11-23] MEDS: PROCHLORPERAZINE 10 MG/2 ML VIAL. IV PRN ×2 (04:39→20:46)
[2016-11-23 07:00] VITALS: BP 126/74
[2016-11-23] MEDS: FAMOTIDINE 20 MG/2 ML VIAL IVP SCH ×3 (09:00→20:46)
[2016-11-23] MEDS: ONDANSETRON PF 4 MG/2 ML VIAL. IV PRN ×2 (09:03→18:26)
--- NOTE | 2016-11-23 09:07 | PDOC ---
Infectious Disease Note Subjective Subjective Doing well. Mild NGT irritation Small BM hungry Tube clamped since yesterday afternoon ROS ROS GEN: Denies fevers, chills, sweats HEENT: Denies blurred vision, sore throat CV: Denies chest pain RESP: Denies shortness of air, cough GI: Denies n/v/d NEURO: Denies confusion, dizziness MSK: Denies weakness, joint pain/swelling Vital Sign Vital Signs Vital Signs Date Time Temp Pulse Resp B/P (MAP) Pulse Ox O2 Delivery O2 Flow Rate FiO2 11/23/16 07:00 99.1 72 16 126/74 (91) 98 Room Air 99.1 Physical Exam PHYSICAL EXAM GENERAL: NAD, Alert HEENT: PERRL, OC/OP - clear NECK: Supple, no JVD, no LN LUNGS: Clear HEART: S1S2, no gallop, no murmur ABD: Soft, NT, no organomegaly, no rebound, NGT. Mild obese EXT: No edema, no cyanosis [employer]ESTER: Alert, oriented x 3, no focal neurologic deficit SKIN: No rash IV: ok Labs Lab Laboratory Tests Test 11/23/16 03:30 White Blood Count 9.1 x10^3/uL (4.0-11.0) Red Blood Count 4.09 x10^6/uL (3.50-5.40) Hemoglobin 13.5 g/dL (12.0-15.5) Hematocrit 41.0 % (36.0-47.0) Mean Corpuscular Volume 100 fL (79-100) Mean Corpuscular Hemoglobin 33 pg (25-35) Mean Corpuscular Hemoglobin Concent 33 g/dL (31-37) Red Cell Distribution Width 11.7 % (11.5-14.5) Platelet Count 138 x10^3/uL (140-400) Neutrophils (%) (Auto) 68 % (31-73) Lymphocytes (%) (Auto) 18 % (24-48) Monocytes (%) (Auto) 11 % (0-9) Eosinophils (%) (Auto) 3 % (0-3) Basophils (%) (Auto) 1 % (0-3) Neutrophils # (Auto) 6.1 x10^3uL (1.8-7.7) Lymphocytes # (Auto) 1.6 x10^3/uL (1.0-4.8) Monocytes # (Auto) 0.9 x10^3/uL (0.0-1.1) Eosinophils # (Auto) 0.3 x10^3/uL (0.0-0.7) Basophils # (Auto) 0.1 x10^3/uL (0.0-0.2) Sodium Level 137 mmol/L (136-145) Potassium Level 4.3 mmol/L (3.5-5.1) Chloride Level 102 mmol/L (98-107) Carbon Dioxide Level 30 mmol/L (21-32) Anion Gap 5 (6-14) Blood Urea Nitrogen 18 mg/dL (7-20) Creatinine 1.0 mg/dL (0.6-1.0) Estimated GFR (Cockcroft-Gault) 57.6 Glucose Level 96 mg/dL (70-99) Calcium Level 8.8 mg/dL (8.5-10.1) Objective Assessment Leukocytosis - better Low grade temps ? reactive - better SBO - ? resolving Loose stool times one. unlikely C-diff as WBC improving. No abx for over a year and no oral intake Plan Plan of Care Cont to hold abx F/u labs If spikes to 101 will cult and add abx hope for NGT removal - await Surgical F/u Attending Co-Sign Attending Co-Sign The patient was seen and interviewed as well as examined at the bedside. The chart was reviewed. The case was discussed. Agree with the plan of care. CHAYA GAYLE MD Nov 23, 2016 09:07
--- NOTE | 2016-11-23 10:11 | PDOC ---
SURGICAL PROGRESS NOTE Subjective Doing well, no nausea or vomiting with NGT clamped. Small BM this morning Vital Signs Vital Signs Date Time Temp Pulse Resp B/P (MAP) Pulse Ox O2 Delivery O2 Flow Rate FiO2 11/23/16 09:00 98 Room Air 11/23/16 07:00 99.1 72 16 126/74 (91) 99.1 PATIENT HAS A NICHOLSON: No General: Alert, Oriented X3, Cooperative, No acute distress Abdomen: Normal bowel sounds, Soft, No tenderness Labs Laboratory Tests Test 11/22/16 03:30 11/23/16 03:30 White Blood Count 11.8 x10^3/uL (4.0-11.0) 9.1 x10^3/uL (4.0-11.0) Red Blood Count 4.03 x10^6/uL (3.50-5.40) 4.09 x10^6/uL (3.50-5.40) Hemoglobin 13.2 g/dL (12.0-15.5) 13.5 g/dL (12.0-15.5) Hematocrit 40.4 % (36.0-47.0) 41.0 % (36.0-47.0) Mean Corpuscular Volume 100 fL (79-100) 100 fL (79-100) Mean Corpuscular Hemoglobin 33 pg (25-35) 33 pg (25-35) Mean Corpuscular Hemoglobin Concent 33 g/dL (31-37) 33 g/dL (31-37) Red Cell Distribution Width 11.9 % (11.5-14.5) 11.7 % (11.5-14.5) Platelet Count 155 x10^3/uL (140-400) 138 x10^3/uL (140-400) Neutrophils (%) (Auto) 77 % (31-73) 68 % (31-73) Lymphocytes (%) (Auto) 13 % (24-48) 18 % (24-48) Monocytes (%) (Auto) 8 % (0-9) 11 % (0-9) Eosinophils (%) (Auto) 1 % (0-3) 3 % (0-3) Basophils (%) (Auto) 1 % (0-3) 1 % (0-3) Neutrophils # (Auto) 9.1 x10^3uL (1.8-7.7) 6.1 x10^3uL (1.8-7.7) Lymphocytes # (Auto) 1.5 x10^3/uL (1.0-4.8) 1.6 x10^3/uL (1.0-4.8) Monocytes # (Auto) 1.0 x10^3/uL (0.0-1.1) 0.9 x10^3/uL (0.0-1.1) Eosinophils # (Auto) 0.1 x10^3/uL (0.0-0.7) 0.3 x10^3/uL (0.0-0.7) Basophils # (Auto) 0.1 x10^3/uL (0.0-0.2) 0.1 x10^3/uL (0.0-0.2) Sodium Level 138 mmol/L (136-145) 137 mmol/L (136-145) Potassium Level 4.0 mmol/L (3.5-5.1) 4.3 mmol/L (3.5-5.1) Chloride Level 102 mmol/L (98-107) 102 mmol/L (98-107) Carbon Dioxide Level 30 mmol/L (21-32) 30 mmol/L (21-32) Anion Gap 6 (6-14) 5 (6-14) Blood Urea Nitrogen 16 mg/dL (7-20) 18 mg/dL (7-20) Creatinine 1.0 mg/dL (0.6-1.0) 1.0 mg/dL (0.6-1.0) Estimated GFR (Cockcroft-Gault) 57.6 57.6 Glucose Level 101 mg/dL (70-99) 96 mg/dL (70-99) Calcium Level 8.7 mg/dL (8.5-10.1) 8.8 mg/dL (8.5-10.1) Laboratory Tests Test 11/23/16 03:30 White Blood Count 9.1 x10^3/uL (4.0-11.0) Red Blood Count 4.09 x10^6/uL (3.50-5.40) Hemoglobin 13.5 g/dL (12.0-15.5) Hematocrit 41.0 % (36.0-47.0) Mean Corpuscular Volume 100 fL (79-100) Mean Corpuscular Hemoglobin 33 pg (25-35) Mean Corpuscular Hemoglobin Concent 33 g/dL (31-37) Red Cell Distribution Width 11.7 % (11.5-14.5) Platelet Count 138 x10^3/uL (140-400) Neutrophils (%) (Auto) 68 % (31-73) Lymphocytes (%) (Auto) 18 % (24-48) Monocytes (%) (Auto) 11 % (0-9) Eosinophils (%) (Auto) 3 % (0-3) Basophils (%) (Auto) 1 % (0-3) Neutrophils # (Auto) 6.1 x10^3uL (1.8-7.7) Lymphocytes # (Auto) 1.6 x10^3/uL (1.0-4.8) Monocytes # (Auto) 0.9 x10^3/uL (0.0-1.1) Eosinophils # (Auto) 0.3 x10^3/uL (0.0-0.7) Basophils # (Auto) 0.1 x10^3/uL (0.0-0.2) Sodium Level 137 mmol/L (136-145) Potassium Level 4.3 mmol/L (3.5-5.1) Chloride Level 102 mmol/L (98-107) Carbon Dioxide Level 30 mmol/L (21-32) Anion Gap 5 (6-14) Blood Urea Nitrogen 18 mg/dL (7-20) Creatinine 1.0 mg/dL (0.6-1.0) Estimated GFR (Cockcroft-Gault) 57.6 Glucose Level 96 mg/dL (70-99) Calcium Level 8.8 mg/dL (8.5-10.1) Problem List Problems Medical Problems: (1) Small bowel obstruction Status: Acute Assessment/Plan Improving SBO with BM D/C NGT Clear liquid diet Problems: MAYANK WEBSTER MD Nov 23, 2016 10:11
[2016-11-23] MEDS: AMINO AC 3%/ELECTROLYTE/GLYCER 1,000 ML IV SCH ×2 (10:25→20:46)
[2016-11-23] MEDS: LEVOTHYROXINE SODIUM 50 MCG in IV NORMAL SALINE 50ML 5 ML IVP SCH (10:25)
[2016-11-23 11:00] VITALS: BP 104/72
--- NOTE | 2016-11-23 13:19 | PDOC ---
PROGRESS NOTES Chief Complaint Chief Complaint CC: Abd pain GERD HTN HLD Hypothyroidism Depression History of Present Illness History of Present Illness Pt presented w/abd pain nausea and diarrhea that the pt thought was due to sbo as it has happened to her before. Last BM was on 11/22/16. This AM pt resting NAD. NG tube is clamped as of 1PM 11/22/16. No acute overnight events. Pt is continuing to have flatus and BM Vitals Vitals Vital Signs Date Time Temp Pulse Resp B/P (MAP) Pulse Ox O2 Delivery O2 Flow Rate FiO2 11/23/16 11:00 97.8 82 16 104/72 (83) 98 Room Air 97.8 Physical Exam General: Alert, Oriented X3, Cooperative, No acute distress Heart: Regular rate, Normal S1, Normal S2, No murmurs Lungs: Clear Abdomen: Normal bowel sounds, Soft, No tenderness Extremities: No clubbing, No cyanosis Skin: No rashes, No breakdown Labs LABS Laboratory Tests Test 11/23/16 03:30 White Blood Count 9.1 x10^3/uL (4.0-11.0) Red Blood Count 4.09 x10^6/uL (3.50-5.40) Hemoglobin 13.5 g/dL (12.0-15.5) Hematocrit 41.0 % (36.0-47.0) Mean Corpuscular Volume 100 fL (79-100) Mean Corpuscular Hemoglobin 33 pg (25-35) Mean Corpuscular Hemoglobin Concent 33 g/dL (31-37) Red Cell Distribution Width 11.7 % (11.5-14.5) Platelet Count 138 x10^3/uL (140-400) Neutrophils (%) (Auto) 68 % (31-73) Lymphocytes (%) (Auto) 18 % (24-48) Monocytes (%) (Auto) 11 % (0-9) Eosinophils (%) (Auto) 3 % (0-3) Basophils (%) (Auto) 1 % (0-3) Neutrophils # (Auto) 6.1 x10^3uL (1.8-7.7) Lymphocytes # (Auto) 1.6 x10^3/uL (1.0-4.8) Monocytes # (Auto) 0.9 x10^3/uL (0.0-1.1) Eosinophils # (Auto) 0.3 x10^3/uL (0.0-0.7) Basophils # (Auto) 0.1 x10^3/uL (0.0-0.2) Sodium Level 137 mmol/L (136-145) Potassium Level 4.3 mmol/L (3.5-5.1) Chloride Level 102 mmol/L (98-107) Carbon Dioxide Level 30 mmol/L (21-32) Anion Gap 5 (6-14) Blood Urea Nitrogen 18 mg/dL (7-20) Creatinine 1.0 mg/dL (0.6-1.0) Estimated GFR (Cockcroft-Gault) 57.6 Glucose Level 96 mg/dL (70-99) Calcium Level 8.8 mg/dL (8.5-10.1) Review of Systems Review of Systems Complains of throat pain Complains of abd pain Assessment and Plan Assessmemt and Plan Problems Medical Problems: (1) Small bowel obstruction Status: Acute CC: Abd pain: likely due to sbo or viral enteritis, repeat images, continue bowel rest, continue ondansetron, continue procalamine, hope to DC NG if okay with surgery, Dr. Cardona following, appreciate the assistance Leukocytosis: WBC 9.1 today 11/23/16, resolving GERD: Continue famotidine HTN: Continue to follow HLD: Continue to follow Hypothyroidism: Continue levothyroxine Depression: Continue to follow Insomnia: Continue diphenhydramine Dispo: Possible DC tomorrow if ok with surgery Problems: Comment Review of Relevant I have reviewed the following items joe (where applicable) has been applied. Labs Laboratory Tests Test 11/22/16 03:30 11/23/16 03:30 White Blood Count 11.8 x10^3/uL (4.0-11.0) 9.1 x10^3/uL (4.0-11.0) Red Blood Count 4.03 x10^6/uL (3.50-5.40) 4.09 x10^6/uL (3.50-5.40) Hemoglobin 13.2 g/dL (12.0-15.5) 13.5 g/dL (12.0-15.5) Hematocrit 40.4 % (36.0-47.0) 41.0 % (36.0-47.0) Mean Corpuscular Volume 100 fL (79-100) 100 fL (79-100) Mean Corpuscular Hemoglobin 33 pg (25-35) 33 pg (25-35) Mean Corpuscular Hemoglobin Concent 33 g/dL (31-37) 33 g/dL (31-37) Red Cell Distribution Width 11.9 % (11.5-14.5) 11.7 % (11.5-14.5) Platelet Count 155 x10^3/uL (140-400) 138 x10^3/uL (140-400) Neutrophils (%) (Auto) 77 % (31-73) 68 % (31-73) Lymphocytes (%) (Auto) 13 % (24-48) 18 % (24-48) Monocytes (%) (Auto) 8 % (0-9) 11 % (0-9) Eosinophils (%) (Auto) 1 % (0-3) 3 % (0-3) Basophils (%) (Auto) 1 % (0-3) 1 % (0-3) Neutrophils # (Auto) 9.1 x10^3uL (1.8-7.7) 6.1 x10^3uL (1.8-7.7) Lymphocytes # (Auto) 1.5 x10^3/uL (1.0-4.8) 1.6 x10^3/uL (1.0-4.8) Monocytes # (Auto) 1.0 x10^3/uL (0.0-1.1) 0.9 x10^3/uL (0.0-1.1) Eosinophils # (Auto) 0.1 x10^3/uL (0.0-0.7) 0.3 x10^3/uL (0.0-0.7) Basophils # (Auto) 0.1 x10^3/uL (0.0-0.2) 0.1 x10^3/uL (0.0-0.2) Sodium Level 138 mmol/L (136-145) 137 mmol/L (136-145) Potassium Level 4.0 mmol/L (3.5-5.1) 4.3 mmol/L (3.5-5.1) Chloride Level 102 mmol/L (98-107) 102 mmol/L (98-107) Carbon Dioxide Level 30 mmol/L (21-32) 30 mmol/L (21-32) Anion Gap 6 (6-14) 5 (6-14) Blood Urea Nitrogen 16 mg/dL (7-20) 18 mg/dL (7-20) Creatinine 1.0 mg/dL (0.6-1.0) 1.0 mg/dL (0.6-1.0) Estimated GFR (Cockcroft-Gault) 57.6 57.6 Glucose Level 101 mg/dL (70-99) 96 mg/dL (70-99) Calcium Level 8.7 mg/dL (8.5-10.1) 8.8 mg/dL (8.5-10.1) Laboratory Tests Test 11/23/16 03:30 White Blood Count 9.1 x10^3/uL (4.0-11.0) Red Blood Count 4.09 x10^6/uL (3.50-5.40) Hemoglobin 13.5 g/dL (12.0-15.5) Hematocrit 41.0 % (36.0-47.0) Mean Corpuscular Volume 100 fL (79-100) Mean Corpuscular Hemoglobin 33 pg (25-35) Mean Corpuscular Hemoglobin Concent 33 g/dL (31-37) Red Cell Distribution Width 11.7 % (11.5-14.5) Platelet Count 138 x10^3/uL (140-400) Neutrophils (%) (Auto) 68 % (31-73) Lymphocytes (%) (Auto) 18 % (24-48) Monocytes (%) (Auto) 11 % (0-9) Eosinophils (%) (Auto) 3 % (0-3) Basophils (%) (Auto) 1 % (0-3) Neutrophils # (Auto) 6.1 x10^3uL (1.8-7.7) Lymphocytes # (Auto) 1.6 x10^3/uL (1.0-4.8) Monocytes # (Auto) 0.9 x10^3/uL (0.0-1.1) Eosinophils # (Auto) 0.3 x10^3/uL (0.0-0.7) Basophils # (Auto) 0.1 x10^3/uL (0.0-0.2) Sodium Level 137 mmol/L (136-145) Potassium Level 4.3 mmol/L (3.5-5.1) Chloride Level 102 mmol/L (98-107) Carbon Dioxide Level 30 mmol/L (21-32) Anion Gap 5 (6-14) Blood Urea Nitrogen 18 mg/dL (7-20) Creatinine 1.0 mg/dL (0.6-1.0) Estimated GFR (Cockcroft-Gault) 57.6 Glucose Level 96 mg/dL (70-99) Calcium Level 8.8 mg/dL (8.5-10.1) Medications Current Medications Sodium Chloride 1,000 ml @ 1,000 mls/hr Q1H IV Last administered on 11/19/16 08:26; Start 11/19/16 at 08:30; Stop 11/19/16 at 09:29; Status DC Famotidine (Pepcid) 20 mg 1X ONCE IVP Last administered on 11/19/16 08:28; Start 11/19/16 at 08:15; Stop 11/19/16 at 08:16; Status DC Promethazine HCl (Phenergan Im) 25 mg 1X ONCE IM Last administered on 08:29; Start 11/19/16 at 08:30; Stop 11/19/16 at 08:31; Status DC Fentanyl Citrate (Fentanyl 2ml Vial) 50 mcg PRN Q15MIN PRN IV PAIN GREATER THAN 3/10 Last administered on 11/19/16 08:28; Start 11/19/16 at 08:15; Stop at 11:16; Status DC Iohexol (Omnipaque 300 Mg/ml) 60 ml 1X ONCE IV Last administered on 11/19/16 09:57; Start 11/19/16 at 09:45; Stop 11/19/16 at 09:46; Status DC Info (Do NOT chart on this entry -- for MONITORING) 1 each PRN DAILY PRN MC SEE COMMENTS; Start 11/19/16 at 09:45; Stop 11/21/16 at 09:44; Status DC Ondansetron HCl (Zofran) 4 mg PRN Q8HRS PRN IV NAUSEA/VOMITING Last administered on 11/19/16 11:33; Start 11/19/16 at 11:15; Stop 11/19/16 at 11:37 ; Status DC Fentanyl Citrate (Fentanyl 2ml Vial) 50 mcg PRN Q2HR PRN IV PAIN Last administered on 11/20/16 09:05; Start 11/19/16 at 11:15; Stop 11/20/16 at 11:14 ; Status DC Acetaminophen (Tylenol) 650 mg PRN Q4HRS PRN PO FEVER; Start 11/19/16 at 11:15 ; Stop 11/20/16 at 11:14; Status DC Dextrose/Sodium Chloride 1,000 ml @ 125 mls/hr 1X ONCE IV Last administered on 11/19/16 12:57; Start 11/19/16 at 11:30; Stop 11/19/16 at 19:29; Status DC Ondansetron HCl (Zofran) 4 mg PRN Q6HRS PRN IV NAUSEA/VOMITING Last administered on 11/20/16 11:21; Start 11/19/16 at 11:36; Stop 11/20/16 at 11:35 ; Status DC Prochlorperazine Edisylate (Compazine) 10 mg PRN Q6HRS PRN IV NAUSEA/VOMITING ( 2ND CHOICE) Last administered on 11/23/16 04:39; Start 11/19/16 at 11:45 Famotidine (Pepcid) 20 mg BID IVP Last administered on 11/22/16 20:23; Start 11/19/16 at 21:00 Potassium Chloride 30 meq/ Sodium Chloride 1,015 ml @ 75 mls/hr [id number] IV Last administered on 11/20/16 01:32; Start 11/19/16 at 12:00; Stop 11/20/16 at 12:33; Status DC Levothyroxine Sodium 50 mcg/ Sodium Chloride 5 ml @ 100 mls/hr DAILY IVP Last administered on 11/23/16 10:25; Start 11/19/16 at 13:00 Diphenhydramine HCl (Benadryl) 25 mg PRN QHS PRN IVP sleep; Start 11/19/16 at 11:45 Lidocaine HCl (Glydo (Lidocaine) Jelly) 6 maria antonia [facility] ONCE .ROUTE ; Start at 11:38; Stop 11/19/16 at 11:39; Status DC Fentanyl Citrate (Fentanyl 2ml Vial) 50 mcg PRN Q2HR PRN IV PAIN Last administered on 11/23/16 09:00; Start 11/20/16 at 12:30 Ondansetron HCl (Zofran) 8 mg PRN Q6HRS PRN IV NAUSEA/VOMITING (1st CHOICE) Last administered on 11/23/16 09:03; Start 11/20/16 at 12:30 Amino Acids/ Glycerin/ Electrolytes 1,000 ml @ 75 mls/hr [id number] IV Last administered on 11/23/16 10:25; Start 11/20/16 at 12:30 Lorazepam (Ativan) 1 mg PRN Q6HRS PRN IV ALCOHOL WITHDRAWAL; Start 11/20/16 at 12:45; Status Cancel Active Scripts Active Reported Biotin 2,500 Mcg Capsule 10,000 Mcg PO DAILY Magnesium (Magnesium Oxide) 250 Mg Tablet 250 Mg PO DAILY Mariah Allergy (Fexofenadine Hcl) 180 Mg Tablet 1 Tab PO DAILY Gabapentin 300 Mg Capsule 1 Cap PO TID Temazepam 15 Mg Capsule 1-2 Cap PO QHS Promethazine Hcl 12.5 Mg Tablet 1 Tab PO Q6HRS Covaryx H.s. Tablet (Estrogen,Tigist/Me-Testosterone) 1 Each Tablet 1 Each PO Nexium Capsule (Esomeprazole Magnesium) 40 Mg Capsule.dr 40 Mg PO DAILY Hydrocodone-Apap 10-325 (Hydrocodone Bit/Acetaminophen) 1 Each Tablet 1 Each PO PRN Q4HRS Zocor (Simvastatin) 40 Mg Tablet 40 Mg PO DAILY Celebrex (Celecoxib) 200 Mg Capsule 60 Mg PO DAILY Synthroid (Levothyroxine Sodium) 150 Mcg Tablet 100 Mcg PO DAILY Vitals/I & O Vital Sign - Last 24 Hours 11/22/16 11/22/16 11/22/16 11/22/16 15:29 16:42 19:51 20:00 Temp 98.8 100.2 98.8 100.2 Pulse 80 71 Resp 16 22 18 B/P (MAP) 128/73 (91) 133/70 (91) Pulse Ox 97 98 97 O2 Delivery Room Air Room Air Room Air Room Air 11/22/16 11/22/16 11/23/16 11/23/16 20:59 23:11 01:19 03:58 Temp 98.8 98.6 98.8 98.6 Pulse 80 Resp 18 B/P (MAP) 125/69 (87) Pulse Ox 97 O2 Delivery Room Air Room Air Room Air Room Air 11/23/16 11/23/16 11/23/16 11/23/16 04:40 07:00 08:00 09:00 Temp 99.1 99.1 Pulse 72 Resp 16 B/P (MAP) 126/74 (91) Pulse Ox 98 98 O2 Delivery Room Air Room Air Room Air Room Air 11/23/16 11/23/16 10:45 11:00 Temp 97.8 97.8 Pulse 82 Resp 16 B/P (MAP) 104/72 (83) Pulse Ox 98 98 O2 Delivery Room Air Room Air Intake and Output 11/23/16 11/23/16 11/24/16 14:59 22:59 06:59 Output Total 0 ml Balance 0 ml JULIETTE STARK III DO Nov 23, 2016 13:19
[2016-11-23 15:00] VITALS: BP 134/60
[2016-11-23 19:00] VITALS: BP 106/71
[2016-11-23 22:56] VITALS: BP 113/72
[2016-11-24] MEDS: fentaNYL PF VIAL 100 MCG/2 ML VIAL IV PRN ×5 (02:24→17:38)
[2016-11-24 03:00] VITALS: BP 122/75
[2016-11-24] MEDS: PROCHLORPERAZINE 10 MG/2 ML VIAL. IV PRN ×3 (03:04→20:25)
[2016-11-24 04:37] LABS: BASO # 0.1 x10^3/uL (0.0-0.2); BASO % 1 % (0-3); EOS % 7 % (0-3); HEMATOCRIT 40.8 % (36.0-47.0); HEMOGLOBIN 13.5 g/dL (12.0-15.5); LYMPH # 1.6 x10^3/uL (1.0-4.8); LYMPH % 22 % (24-48); MEAN CORPUSCULAR HEMOGLOBIN 33 pg (25-35); MEAN CORPUSCULAR HGB CONC 33 g/dL (31-37); MEAN CORPUSCULAR VOLUME 100 fL (79-100); MONO % 11 % (0-9); NEUT % 61 % (31-73); PLATELET COUNT 131 x10^3/uL (140-400); RED BLOOD COUNT 4.07 x10^6/uL (3.50-5.40); RED CELL DISTRIBUTION WIDTH 12.1 % (11.5-14.5); WHITE BLOOD COUNT 7.4 x10^3/uL (4.0-11.0)
[2016-11-24 05:09] LABS: CREATININE 0.8 mg/dL (0.6-1.0); GFR 74.5; POTASSIUM 3.1 mmol/L (3.5-5.1)
[2016-11-24 07:00] VITALS: BP 139/69
[2016-11-24] MEDS: LEVOTHYROXINE SODIUM 50 MCG in IV NORMAL SALINE 50ML 5 ML IVP SCH (08:57)
[2016-11-24] MEDS: FAMOTIDINE 20 MG/2 ML VIAL IVP SCH (08:57)
[2016-11-24] MEDS: AMINO AC 3%/ELECTROLYTE/GLYCER 1,000 ML IV SCH ×2 (08:57→22:55)
[2016-11-24 11:00] VITALS: BP 110/68
--- NOTE | 2016-11-24 11:56 | PDOC ---
Infectious Disease Note Subjective Subjective Doing well. + Flatus Small BM hungry ROS ROS GEN: Denies fevers, chills, sweats HEENT: Denies blurred vision, sore throat CV: Denies chest pain RESP: Denies shortness of air, cough GI: Denies n/v/d NEURO: Denies confusion, dizziness MSK: Denies weakness, joint pain/swelling Vital Sign Vital Signs Vital Signs Date Time Temp Pulse Resp B/P (MAP) Pulse Ox O2 Delivery O2 Flow Rate FiO2 11/24/16 11:00 98.1 78 18 110/68 (82) 100 Room Air 98.1 Physical Exam PHYSICAL EXAM GENERAL: NAD, Alert HEENT: PERRL, OC/OP- clear NECK: Supple, no JVD, no LN LUNGS: Clear HEART: S1S2, no gallop, no murmur ABD: Soft, NT, no organomegaly, no rebound, obese EXT: No edema, no cyanosis PERSONAL INJURY SPECIALIST: Alert, oriented x 3, no focal neurologic deficit SKIN: No rash IV: ok Labs Lab Laboratory Tests Test 11/24/16 03:40 White Blood Count 7.4 x10^3/uL (4.0-11.0) Red Blood Count 4.07 x10^6/uL (3.50-5.40) Hemoglobin 13.5 g/dL (12.0-15.5) Hematocrit 40.8 % (36.0-47.0) Mean Corpuscular Volume 100 fL (79-100) Mean Corpuscular Hemoglobin 33 pg (25-35) Mean Corpuscular Hemoglobin Concent 33 g/dL (31-37) Red Cell Distribution Width 12.1 % (11.5-14.5) Platelet Count 131 x10^3/uL (140-400) Neutrophils (%) (Auto) 61 % (31-73) Lymphocytes (%) (Auto) 22 % (24-48) Monocytes (%) (Auto) 11 % (0-9) Eosinophils (%) (Auto) 7 % (0-3) Basophils (%) (Auto) 1 % (0-3) Neutrophils # (Auto) 4.5 x10^3uL (1.8-7.7) Lymphocytes # (Auto) 1.6 x10^3/uL (1.0-4.8) Monocytes # (Auto) 0.8 x10^3/uL (0.0-1.1) Eosinophils # (Auto) 0.5 x10^3/uL (0.0-0.7) Basophils # (Auto) 0.1 x10^3/uL (0.0-0.2) Sodium Level 139 mmol/L (136-145) Potassium Level 3.1 mmol/L (3.5-5.1) Chloride Level 101 mmol/L (98-107) Carbon Dioxide Level 26 mmol/L (21-32) Anion Gap 12 (6-14) Blood Urea Nitrogen 15 mg/dL (7-20) Creatinine 0.8 mg/dL (0.6-1.0) Estimated GFR (Cockcroft-Gault) 74.5 Glucose Level 92 mg/dL (70-99) Calcium Level 9.0 mg/dL (8.5-10.1) Objective Assessment Leukocytosis - better Low grade temps ? reactive - better SBO - ? resolving - NGT out Plan Plan of Care ID to sign off CHAYA GAYLE MD Nov 24, 2016 11:56
--- NOTE | 2016-11-24 12:18 | PDOC ---
Provider Note Provider Note seeing for dr. quevedo today she is feeling much better dyan clears. +flatus and mucous per rectum. no abd pain. no longer feels distended afeb vss wbc normal alert, no distress ng removed yest abd soft nd nt a/p sbo, resolving. full liquids today. LENY HILARIO MD Nov 24, 2016 12:18
[2016-11-24] MEDS ORDERED: POTASSIUM CHLORIDE 20 MEQ TABLET.ER. PO ONE (12:45)
[2016-11-24 15:00] VITALS: BP 122/66
--- NOTE | 2016-11-24 15:23 | PDOC ---
PROGRESS NOTES Chief Complaint Chief Complaint CC: Abd pain with SBO GERD HTN HLD Hypothyroidism Depression HYPOKALEMIA Leukocytosis, no SIRS or sepsis plan: fu with sx, advance to full liquid today change to po meds dc iv meds id signed off hope dc tmr replete K History of Present Illness History of Present Illness ROS: no fever, chills, sob or chest pain no N/V, no abd pain, no BM, but has flatus on clear liquid diet Vitals Vitals Vital Signs Date Time Temp Pulse Resp B/P (MAP) Pulse Ox O2 Delivery O2 Flow Rate FiO2 11/24/16 15:04 100 Room Air 11/24/16 15:00 98.5 71 18 122/66 (84) 98.5 Physical Exam General: Alert, Oriented X3, Cooperative, No acute distress Heart: Regular rate, Normal S1, Normal S2, No murmurs Lungs: Clear Abdomen: Normal bowel sounds, Soft, No tenderness Extremities: No clubbing, No cyanosis Skin: No rashes, No breakdown Labs LABS Laboratory Tests Test 11/24/16 03:40 White Blood Count 7.4 x10^3/uL (4.0-11.0) Red Blood Count 4.07 x10^6/uL (3.50-5.40) Hemoglobin 13.5 g/dL (12.0-15.5) Hematocrit 40.8 % (36.0-47.0) Mean Corpuscular Volume 100 fL (79-100) Mean Corpuscular Hemoglobin 33 pg (25-35) Mean Corpuscular Hemoglobin Concent 33 g/dL (31-37) Red Cell Distribution Width 12.1 % (11.5-14.5) Platelet Count 131 x10^3/uL (140-400) Neutrophils (%) (Auto) 61 % (31-73) Lymphocytes (%) (Auto) 22 % (24-48) Monocytes (%) (Auto) 11 % (0-9) Eosinophils (%) (Auto) 7 % (0-3) Basophils (%) (Auto) 1 % (0-3) Neutrophils # (Auto) 4.5 x10^3uL (1.8-7.7) Lymphocytes # (Auto) 1.6 x10^3/uL (1.0-4.8) Monocytes # (Auto) 0.8 x10^3/uL (0.0-1.1) Eosinophils # (Auto) 0.5 x10^3/uL (0.0-0.7) Basophils # (Auto) 0.1 x10^3/uL (0.0-0.2) Sodium Level 139 mmol/L (136-145) Potassium Level 3.1 mmol/L (3.5-5.1) Chloride Level 101 mmol/L (98-107) Carbon Dioxide Level 26 mmol/L (21-32) Anion Gap 12 (6-14) Blood Urea Nitrogen 15 mg/dL (7-20) Creatinine 0.8 mg/dL (0.6-1.0) Estimated GFR (Cockcroft-Gault) 74.5 Glucose Level 92 mg/dL (70-99) Calcium Level 9.0 mg/dL (8.5-10.1) Assessment and Plan Assessmemt and Plan Problems Medical Problems: (1) Small bowel obstruction Status: Acute Problems: Comment Review of Relevant I have reviewed the following items joe (where applicable) has been applied. Labs Laboratory Tests Test 11/23/16 03:30 11/24/16 03:40 White Blood Count 9.1 x10^3/uL (4.0-11.0) 7.4 x10^3/uL (4.0-11.0) Red Blood Count 4.09 x10^6/uL (3.50-5.40) 4.07 x10^6/uL (3.50-5.40) Hemoglobin 13.5 g/dL (12.0-15.5) 13.5 g/dL (12.0-15.5) Hematocrit 41.0 % (36.0-47.0) 40.8 % (36.0-47.0) Mean Corpuscular Volume 100 fL (79-100) 100 fL (79-100) Mean Corpuscular Hemoglobin 33 pg (25-35) 33 pg (25-35) Mean Corpuscular Hemoglobin Concent 33 g/dL (31-37) 33 g/dL (31-37) Red Cell Distribution Width 11.7 % (11.5-14.5) 12.1 % (11.5-14.5) Platelet Count 138 x10^3/uL (140-400) 131 x10^3/uL (140-400) Neutrophils (%) (Auto) 68 % (31-73) 61 % (31-73) Lymphocytes (%) (Auto) 18 % (24-48) 22 % (24-48) Monocytes (%) (Auto) 11 % (0-9) 11 % (0-9) Eosinophils (%) (Auto) 3 % (0-3) 7 % (0-3) Basophils (%) (Auto) 1 % (0-3) 1 % (0-3) Neutrophils # (Auto) 6.1 x10^3uL (1.8-7.7) 4.5 x10^3uL (1.8-7.7) Lymphocytes # (Auto) 1.6 x10^3/uL (1.0-4.8) 1.6 x10^3/uL (1.0-4.8) Monocytes # (Auto) 0.9 x10^3/uL (0.0-1.1) 0.8 x10^3/uL (0.0-1.1) Eosinophils # (Auto) 0.3 x10^3/uL (0.0-0.7) 0.5 x10^3/uL (0.0-0.7) Basophils # (Auto) 0.1 x10^3/uL (0.0-0.2) 0.1 x10^3/uL (0.0-0.2) Sodium Level 137 mmol/L (136-145) 139 mmol/L (136-145) Potassium Level 4.3 mmol/L (3.5-5.1) 3.1 mmol/L (3.5-5.1) Chloride Level 102 mmol/L (98-107) 101 mmol/L (98-107) Carbon Dioxide Level 30 mmol/L (21-32) 26 mmol/L (21-32) Anion Gap 5 (6-14) 12 (6-14) Blood Urea Nitrogen 18 mg/dL (7-20) 15 mg/dL (7-20) Creatinine 1.0 mg/dL (0.6-1.0) 0.8 mg/dL (0.6-1.0) Estimated GFR (Cockcroft-Gault) 57.6 74.5 Glucose Level 96 mg/dL (70-99) 92 mg/dL (70-99) Calcium Level 8.8 mg/dL (8.5-10.1) 9.0 mg/dL (8.5-10.1) Laboratory Tests Test 11/24/16 03:40 White Blood Count 7.4 x10^3/uL (4.0-11.0) Red Blood Count 4.07 x10^6/uL (3.50-5.40) Hemoglobin 13.5 g/dL (12.0-15.5) Hematocrit 40.8 % (36.0-47.0) Mean Corpuscular Volume 100 fL (79-100) Mean Corpuscular Hemoglobin 33 pg (25-35) Mean Corpuscular Hemoglobin Concent 33 g/dL (31-37) Red Cell Distribution Width 12.1 % (11.5-14.5) Platelet Count 131 x10^3/uL (140-400) Neutrophils (%) (Auto) 61 % (31-73) Lymphocytes (%) (Auto) 22 % (24-48) Monocytes (%) (Auto) 11 % (0-9) Eosinophils (%) (Auto) 7 % (0-3) Basophils (%) (Auto) 1 % (0-3) Neutrophils # (Auto) 4.5 x10^3uL (1.8-7.7) Lymphocytes # (Auto) 1.6 x10^3/uL (1.0-4.8) Monocytes # (Auto) 0.8 x10^3/uL (0.0-1.1) Eosinophils # (Auto) 0.5 x10^3/uL (0.0-0.7) Basophils # (Auto) 0.1 x10^3/uL (0.0-0.2) Sodium Level 139 mmol/L (136-145) Potassium Level 3.1 mmol/L (3.5-5.1) Chloride Level 101 mmol/L (98-107) Carbon Dioxide Level 26 mmol/L (21-32) Anion Gap 12 (6-14) Blood Urea Nitrogen 15 mg/dL (7-20) Creatinine 0.8 mg/dL (0.6-1.0) Estimated GFR (Cockcroft-Gault) 74.5 Glucose Level 92 mg/dL (70-99) Calcium Level 9.0 mg/dL (8.5-10.1) Medications Current Medications Sodium Chloride 1,000 ml @ 1,000 mls/hr Q1H IV Last administered on 11/19/16 08:26; Start 11/19/16 at 08:30; Stop 11/19/16 at 09:29; Status DC Famotidine (Pepcid) 20 mg 1X ONCE IVP Last administered on 11/19/16 08:28; Start 11/19/16 at 08:15; Stop 11/19/16 at 08:16; Status DC Promethazine HCl (Phenergan Im) 25 mg 1X ONCE IM Last administered on 08:29; Start 11/19/16 at 08:30; Stop 11/19/16 at 08:31; Status DC Fentanyl Citrate (Fentanyl 2ml Vial) 50 mcg PRN Q15MIN PRN IV PAIN GREATER THAN 3/10 Last administered on 11/19/16 08:28; Start 11/19/16 at 08:15; Stop at 11:16; Status DC Iohexol (Omnipaque 300 Mg/ml) 60 ml 1X ONCE IV Last administered on 11/19/16 09:57; Start 11/19/16 at 09:45; Stop 11/19/16 at 09:46; Status DC Info (Do NOT chart on this entry -- for MONITORING) 1 each PRN DAILY PRN MC SEE COMMENTS; Start 11/19/16 at 09:45; Stop 11/21/16 at 09:44; Status DC Ondansetron HCl (Zofran) 4 mg PRN Q8HRS PRN IV NAUSEA/VOMITING Last administered on 11/19/16 11:33; Start 11/19/16 at 11:15; Stop 11/19/16 at 11:37 ; Status DC Fentanyl Citrate (Fentanyl 2ml Vial) 50 mcg PRN Q2HR PRN IV PAIN Last administered on 11/20/16 09:05; Start 11/19/16 at 11:15; Stop 11/20/16 at 11:14 ; Status DC Acetaminophen (Tylenol) 650 mg PRN Q4HRS PRN PO FEVER; Start 11/19/16 at 11:15 ; Stop 11/20/16 at 11:14; Status DC Dextrose/Sodium Chloride 1,000 ml @ 125 mls/hr 1X ONCE IV Last administered on 11/19/16 12:57; Start 11/19/16 at 11:30; Stop 11/19/16 at 19:29; Status DC Ondansetron HCl (Zofran) 4 mg PRN Q6HRS PRN IV NAUSEA/VOMITING Last administered on 11/20/16 11:21; Start 11/19/16 at 11:36; Stop 11/20/16 at 11:35 ; Status DC Prochlorperazine Edisylate (Compazine) 10 mg PRN Q6HRS PRN IV NAUSEA/VOMITING ( 2ND CHOICE) Last administered on 11/24/16 14:11; Start 11/19/16 at 11:45 Famotidine (Pepcid) 20 mg BID IVP Last administered on 11/22/16 20:23; Start 11/19/16 at 21:00 Potassium Chloride 30 meq/ Sodium Chloride 1,015 ml @ 75 mls/hr [id number] IV Last administered on 11/20/16 01:32; Start 11/19/16 at 12:00; Stop 11/20/16 at 12:33; Status DC Levothyroxine Sodium 50 mcg/ Sodium Chloride 5 ml @ 100 mls/hr DAILY IVP Last administered on 11/24/16 08:57; Start 11/19/16 at 13:00 Diphenhydramine HCl (Benadryl) 25 mg PRN QHS PRN IVP sleep; Start 11/19/16 at 11:45 Lidocaine HCl (Glydo (Lidocaine) Jelly) 6 [facility] ; Start at 11:38; Stop 11/19/16 at 11:39; Status DC Fentanyl Citrate (Fentanyl 2ml Vial) 50 mcg PRN Q2HR PRN IV PAIN Last administered on 11/24/16 14:03; Start 11/20/16 at 12:30 Ondansetron HCl (Zofran) 8 mg PRN Q6HRS PRN IV NAUSEA/VOMITING (1st CHOICE) Last administered on 11/23/16 18:26; Start 11/20/16 at 12:30 Amino Acids/ Glycerin/ Electrolytes 1,000 ml @ 75 mls/hr [id number] IV Last administered on 11/23/16 10:25; Start 11/20/16 at 12:30 Lorazepam (Ativan) 1 mg PRN Q6HRS PRN IV ALCOHOL WITHDRAWAL; Start 11/20/16 at 12:45; Status Cancel Potassium Chloride (Klor-Con) 40 meq 1X ONCE PO Last administered on 14:03; Start 11/24/16 at 12:45; Stop 11/24/16 at 12:46; Status DC Active Scripts Active Reported Biotin 2,500 Mcg Capsule 10,000 Mcg PO DAILY Magnesium (Magnesium Oxide) 250 Mg Tablet 250 Mg PO DAILY Mariah Allergy (Fexofenadine Hcl) 180 Mg Tablet 1 Tab PO DAILY Gabapentin 300 Mg Capsule 1 Cap PO TID Temazepam 15 Mg Capsule 1-2 Cap PO QHS Promethazine Hcl 12.5 Mg Tablet 1 Tab PO Q6HRS Covaryx H.s. Tablet (Estrogen,Tigist/Me-Testosterone) 1 Each Tablet 1 Each PO Nexium Capsule (Esomeprazole Magnesium) 40 Mg Capsule.dr 40 Mg PO DAILY Hydrocodone-Apap 10-325 (Hydrocodone Bit/Acetaminophen) 1 Each Tablet 1 Each PO PRN Q4HRS Zocor (Simvastatin) 40 Mg Tablet 40 Mg PO DAILY Celebrex (Celecoxib) 200 Mg Capsule 60 Mg PO DAILY Synthroid (Levothyroxine Sodium) 150 Mcg Tablet 100 Mcg PO DAILY Vitals/I & O Vital Sign - Last 24 Hours 11/23/16 11/23/16 11/23/16 11/23/16 15:43 18:26 19:00 20:00 Temp 98.8 98.8 Pulse 75 Resp 18 B/P (MAP) 106/71 (83) Pulse Ox 98 98 100 O2 Delivery Room Air Room Air Room Air Room Air 11/23/16 11/24/16 11/24/16 11/24/16 22:56 02:29 03:00 07:00 Temp 99.1 98.5 99.0 99.1 98.5 99.0 Pulse 80 81 75 Resp 18 18 18 B/P (MAP) 113/72 (86) 122/75 (91) 139/69 (92) Pulse Ox 99 99 99 O2 Delivery Room Air Room Air Room Air 11/24/16 11/24/16 11/24/16 11/24/16 08:00 08:57 11:00 12:02 Temp 98.1 98.1 Pulse 78 Resp 18 B/P (MAP) 110/68 (82) Pulse Ox 99 100 100 O2 Delivery Room Air Room Air Room Air Room Air 11/24/16 11/24/16 11/24/16 14:03 15:00 15:04 Temp 98.5 98.5 Pulse 71 Resp 18 B/P (MAP) 122/66 (84) Pulse Ox 100 100 100 O2 Delivery Room Air Room Air Room Air YI BOSWELL MD Nov 24, 2016 15:23
[2016-11-24] MEDS ORDERED: HYDROcodone/APAP 10/325 1 TAB TABLET PO PRN (15:30)
[2016-11-24] MEDS ORDERED: DOCUSATE SODIUM 100 MG CAPSULE. PO PRN (15:30)
[2016-11-24] MEDS ORDERED: traMADol 50 MG TABLET PO PRN (15:30)
[2016-11-24] MEDS ORDERED: hydrALAZINE 20 MG/ML VIAL. IVP PRN (15:30)
[2016-11-24] MEDS ORDERED: ACETAMINOPHEN 325 MG TABLET. PO PRN (15:30)
[2016-11-24] MEDS ORDERED: ONDANSETRON PF 4 MG/2 ML VIAL. IV PRN (15:30)
[2016-11-24] MEDS ORDERED: CITA40TA5 PO (15:37)
[2016-11-24] MEDS ORDERED: ESTR1TAB25 PO (15:46)
[2016-11-24] MEDS ORDERED: LEVO75TA5 PO (15:46)
[2016-11-24] MEDS ORDERED: HYDR-2762 PO (15:46)
[2016-11-24] MEDS ORDERED: GABAPENTIN 300 MG CAPSULE. PO SCH (16:00)
[2016-11-24] MEDS: GABAPENTIN 300 MG CAPSULE. PO SCH ×2 (17:31→20:25)
[2016-11-24] MEDS ORDERED: PROMETHAZINE 12.5 MG TABLET. PO SCH (18:00)
[2016-11-24] MEDS: MORPHINE SULFATE 2 MG/ML DISP.SYRIN. IV PRN (19:41)
[2016-11-24 19:44] VITALS: BP 132/76
[2016-11-24] MEDS ORDERED: FAMOTIDINE 20 MG TABLET. PO SCH (21:00)
[2016-11-24 23:07] VITALS: BP 112/66
[2016-11-25] MEDS: MORPHINE SULFATE 2 MG/ML DISP.SYRIN. IV PRN ×3 (00:26→09:22)
[2016-11-25 03:02] VITALS: BP 107/64
[2016-11-25] MEDS: PROCHLORPERAZINE 10 MG/2 ML VIAL. IV PRN (04:40)
[2016-11-25 05:50] LABS: CALCIUM 9.1 mg/dL (8.5-10.1); CREATININE 0.8 mg/dL (0.6-1.0); GFR 74.5
[2016-11-25 07:00] VITALS: BP 108/62
[2016-11-25] MEDS ORDERED: LEVOTHYROXINE 100 MCG TABLET PO SCH (07:00)
[2016-11-25] MEDS ORDERED: LEVOTHYROXINE 75 MCG TABLET PO SCH (07:00)
--- NOTE | 2016-11-25 08:25 | PDOC ---
JAVI CURTIS EPIC SPECIALIST 11/25/16 0825: SURGICAL PROGRESS NOTE Subjective did not do well with full liquids last night, increased pain no n/v + flatus yesterday now feeling better, no breakfast yet Vital Signs Vital Signs Date Time Temp Pulse Resp B/P (MAP) Pulse Ox O2 Delivery O2 Flow Rate FiO2 11/25/16 07:00 98.6 73 16 108/62 (77) 98 Room Air 98.6 General: Alert, Oriented X3, Cooperative, No acute distress Abdomen: Soft, No tenderness Labs Laboratory Tests Test 11/24/16 03:40 11/25/16 04:10 White Blood Count 7.4 x10^3/uL (4.0-11.0) Red Blood Count 4.07 x10^6/uL (3.50-5.40) Hemoglobin 13.5 g/dL (12.0-15.5) Hematocrit 40.8 % (36.0-47.0) Mean Corpuscular Volume 100 fL (79-100) Mean Corpuscular Hemoglobin 33 pg (25-35) Mean Corpuscular Hemoglobin Concent 33 g/dL (31-37) Red Cell Distribution Width 12.1 % (11.5-14.5) Platelet Count 131 x10^3/uL (140-400) Neutrophils (%) (Auto) 61 % (31-73) Lymphocytes (%) (Auto) 22 % (24-48) Monocytes (%) (Auto) 11 % (0-9) Eosinophils (%) (Auto) 7 % (0-3) Basophils (%) (Auto) 1 % (0-3) Neutrophils # (Auto) 4.5 x10^3uL (1.8-7.7) Lymphocytes # (Auto) 1.6 x10^3/uL (1.0-4.8) Monocytes # (Auto) 0.8 x10^3/uL (0.0-1.1) Eosinophils # (Auto) 0.5 x10^3/uL (0.0-0.7) Basophils # (Auto) 0.1 x10^3/uL (0.0-0.2) Sodium Level 139 mmol/L (136-145) 137 mmol/L (136-145) Potassium Level 3.1 mmol/L (3.5-5.1) 4.0 mmol/L (3.5-5.1) Chloride Level 101 mmol/L (98-107) 101 mmol/L (98-107) Carbon Dioxide Level 26 mmol/L (21-32) 24 mmol/L (21-32) Anion Gap 12 (6-14) 12 (6-14) Blood Urea Nitrogen 15 mg/dL (7-20) 16 mg/dL (7-20) Creatinine 0.8 mg/dL (0.6-1.0) 0.8 mg/dL (0.6-1.0) Estimated GFR (Cockcroft-Gault) 74.5 74.5 Glucose Level 92 mg/dL (70-99) 94 mg/dL (70-99) Calcium Level 9.0 mg/dL (8.5-10.1) 9.1 mg/dL (8.5-10.1) Laboratory Tests Test 11/25/16 04:10 Sodium Level 137 mmol/L (136-145) Potassium Level 4.0 mmol/L (3.5-5.1) Chloride Level 101 mmol/L (98-107) Carbon Dioxide Level 24 mmol/L (21-32) Anion Gap 12 (6-14) Blood Urea Nitrogen 16 mg/dL (7-20) Creatinine 0.8 mg/dL (0.6-1.0) Estimated GFR (Cockcroft-Gault) 74.5 Glucose Level 94 mg/dL (70-99) Calcium Level 9.1 mg/dL (8.5-10.1) Problem List Problems Medical Problems: (1) Small bowel obstruction Status: Acute Assessment/Plan sbo will see how she does with full liquids for breakfast this AM before advancing diet Problems: MAYANK WEBSTER MD 11/25/16 1043: SURGICAL PROGRESS NOTE Assessment/Plan Agree with Srikanth's assessment and plan Problems: JAVI CURTIS APRN Nov 25, 2016 08:25 MAYANK WEBSTER MD Nov 25, 2016 10:43
[2016-11-25] MEDS ORDERED: CELECOXIB 200 MG CAPSULE. PO SCH (09:00)
[2016-11-25] MEDS ORDERED: SIMVASTATIN 40 MG TABLET. PO SCH (09:00)
[2016-11-25 09:10] LABS: BASO # 0.1 x10^3/uL (0.0-0.2); BASO % 1 % (0-3); EOS % 6 % (0-3); HEMATOCRIT 41.8 % (36.0-47.0); HEMOGLOBIN 13.6 g/dL (12.0-15.5); LYMPH # 1.8 x10^3/uL (1.0-4.8); LYMPH % 24 % (24-48); MEAN CORPUSCULAR HEMOGLOBIN 33 pg (25-35); MEAN CORPUSCULAR HGB CONC 33 g/dL (31-37); MEAN CORPUSCULAR VOLUME 100 fL (79-100); MONO % 9 % (0-9); NEUT % 59 % (31-73); PLATELET COUNT 150 x10^3/uL (140-400); RED BLOOD COUNT 4.18 x10^6/uL (3.50-5.40); WHITE BLOOD COUNT 7.4 x10^3/uL (4.0-11.0)
[2016-11-25] MEDS: GABAPENTIN 300 MG CAPSULE. PO SCH ×2 (09:16→12:55)
[2016-11-25 10:58] VITALS: BP 101/63
[2016-11-25] MEDS: AMINO AC 3%/ELECTROLYTE/GLYCER 1,000 ML IV SCH (11:14)
[2016-11-25] MEDS ORDERED: HYDR-2766 PO (11:33)
--- NOTE | 2016-11-25 14:01 | PDOC3 ---
Discharge Summary [facility] Date of Admission: Nov 19, 2016 Discharge Date: Nov 25, 2016 Admitting Diagnosis CC: Abd pain with SBO GERD HTN HLD Hypothyroidism Depression HYPOKALEMIA Leukocytosis, no SIRS or sepsis Problems: Final Diagnosis CONSULTS sx Brief Hospital Course Ms. Travis is a 56 old F, with h/o multiple abd sx, comes for abd pain, CT SHOWED SBO, first time for pt. Pt improved, no N/V, mild abd pain, has flatus, no BM yet. KUB showed better. advance diet to gi soft as per sx today. dc later today if ok with sx. dc time 35min General: Alert, Oriented X3, Cooperative, No acute distress Heart: Regular rate, Normal S1, Normal S2, No murmurs Lungs: Clear Abdomen: Normal bowel sounds, Soft, No tenderness Extremities: No clubbing, No cyanosis Skin: No rashes, No breakdown Patient History: Unknown Problems: Disposition home CONDITION AT DISCHARGE: Improved Diet gi soft Scheduled Biotin (Biotin), 10,000 MCG PO DAILY, (Reported) Citalopram Hydrobromide (Citalopram Hbr), 1 TAB PO DAILY, (Reported) Esomeprazole Magnesium (Nexium Capsule), 40 MG PO DAILY, (Reported) Estrogen,Tigist/Me-Testosterone (Eemt Hs 0.625-1.25 Mg Tablet), 1 TAB PO DAILY, ( Reported) Fexofenadine Hcl (Mariah Allergy), 1 TAB PO DAILY, (Reported) Gabapentin (Gabapentin), 1 CAP PO QID, (Reported) Hydrocodone Bit/Acetaminophen (Hydrocodone-Apap 7.5-325 ), 1 TAB PO TID, ( Reported) Levothyroxine Sodium (Levothyroxine Sodium), 1 TAB PO DAILY, (Reported) Simvastatin (Zocor), 40 MG PO DAILY, (Reported) Temazepam (Temazepam), 1-2 CAP PO QHS, (Reported) Scheduled PRN Hydrocodone Bit/Acetaminophen (Hydrocodone-Apap 10-325 ), 1 TAB PO PRN Q4HRS PRN for PAIN Discontinued Medications Celecoxib (Celebrex), 60 MG PO DAILY, (Reported) Estrogen,Tigist/Me-Testosterone (Covaryx H.s. Tablet), 1 EACH PO, (Reported) Hydrocodone Bit/Acetaminophen (Hydrocodone-Apap 10-325 ), 1 EACH PO PRN Q4HRS , (Reported) Levothyroxine Sodium (Synthroid), 100 MCG PO DAILY, (Reported) Magnesium Oxide (Magnesium), 250 MG PO DAILY, (Reported) Promethazine Hcl (Promethazine Hcl), 1 TAB PO Q6HRS, (Reported) Follow Up pcp in 2 weeks YI BOSWELL MD Nov 25, 2016 14:01
== END 2016-11-25 15:30 | disposition home or self-care (01) | DRG 390 ==
LOC: ER 07:40 → 4 NORTH 11:00 → 6 SOUTH 12:29
PROVIDERS: ADMIT Internal Medicine; ATTEND Internal Medicine
PROC: 0D9670Z Drainage of Stomach with Drainage Device, Via Natural or Artificial Opening (ICD-10-PCS; principal; 2016-11-19)
DX: K56.60 Unspecified intestinal obstruction (principal); I10 Essential (primary) hypertension; E03.9 Hypothyroidism, unspecified; E78.5 Hyperlipidemia, unspecified; G89.29 Other chronic pain; E66.9 Obesity, unspecified; K21.9 Gastro-esophageal reflux disease without esophagitis; F32.9 Major depressive disorder, single episode, unspecified; E87.6 Hypokalemia; G47.00 Insomnia, unspecified; Z90.49 Acquired absence of other specified parts of digestive tract; Z90.710 Acquired absence of both cervix and uterus; Z98.84 Bariatric surgery status; Z68.28 Body mass index [BMI] 28.0-28.9, adult; Z82.49 Family history of ischemic heart disease and other diseases of the circulatory system
CPT/HCPCS: 36415; 74000; 74022; 74177; 80048; 80053; 81001; 83690; 85007; 85025; 96361; 96372; 96374; 96375; J0780; J2270; J2405; J2550; J3010; J7030; Q9967; S0028; 97110; 97116; 97530; 99285-25

== ENCOUNTER → 2017-03-30 | Outpatient (CLI) | payer MEDICARE | END | disposition home or self-care (01) | LOC: KCIC MRI 11:58 | DX: M51.36 Other intervertebral disc degeneration, lumbar region (principal); M25.551 Pain in right hip; M25.552 Pain in left hip; M12.88 Other specific arthropathies, not elsewhere classified, other specified site; M51.26 Other intervertebral disc displacement, lumbar region; M25.78 Osteophyte, vertebrae | CPT/HCPCS: 72148; 73502 ==

== ENCOUNTER → 2017-11-11 | Outpatient (CLI) | payer MEDICARE ==
[~2017-11-11] MED LIST changes: -CITA20TA5 PO; +CITA20TA6 PO; +CITA40TA5 PO; +ESTR1TAB25 PO; +HYDR-2762 PO; +LEVO75TA5 PO; -METO100T2 PO; +METO100T7 PO
--- NOTE | 2017-11-11 15:23 | KCIC ---
MRI of the thoracic spine without contrast 11/11/2017 CLINICAL HISTORY: Chronic low back pain. Prespinal stimulator placement evaluation TECHNIQUE: Unenhanced T1-weighted, T2-weighted and inversion recovery sagittal and T1-weighted and T2-weighted axial images of the thoracic spine were obtained. T2-weighted sagittal images of the cervical, thoracic and lumbar spine were obtained for localization purposes. FINDINGS: Minimal S-shaped curvature of the thoracolumbar spine is seen. Degenerative signal changes are seen involving all the disks of the thoracic spine. Degenerative changes are seen within the marrow surrounding these discs. A 1.1 cm hemangioma seen involving the T12 vertebral body. No area of abnormal signal intensity is seen involving the thoracic spinal cord. Degenerative changes are seen throughout the thoracic disc spaces consisting of minimal to mild generalized disc bulges and degenerative changes involving the facet joints. These findings result in mild central spinal canal stenosis without evidence of cord impingement at T10-11. Mild bilateral neural foraminal stenosis is seen at T10-11. IMPRESSION: Degenerative changes are seen involving the thoracic spine. These findings result in mild central spinal canal stenosis with mild bilateral neural foraminal stenosis at T10-11. No cord impingement is seen. Electronically signed by: Sheldon Paniagua MD (11/11/2017 3:19 PM) [email or web address]
== END | disposition home or self-care (01) ==
LOC: KCIC MRI 11:26
PROVIDERS: ATTEND Nurse Practitioner Acute Care
DX: Z01.818 Encounter for other preprocedural examination (principal); M47.894 Other spondylosis, thoracic region; M48.04 Spinal stenosis, thoracic region; M43.8X4 Other specified deforming dorsopathies, thoracic region; I10 Essential (primary) hypertension; E78.5 Hyperlipidemia, unspecified; E03.9 Hypothyroidism, unspecified; K21.9 Gastro-esophageal reflux disease without esophagitis; Z87.891 Personal history of nicotine dependence
CPT/HCPCS: 72146